=== PATIENT | female | born 1935 | race Caucasian/White ===

== ENCOUNTER 2019-03-01 16:09 | Inpatient (IN) | payer OTHER, MEDICAID ==
[~2019-03-01] VITALS: Ht 162.6 cm; Wt 62.6 kg
--- NOTE | 2019-03-01 16:09 | NUR ---
Patient KIA STUART from [facility], transferred to bed 3. RN evaluating patient at bedside.
[2019-03-01 16:15] VITALS: BP 148/95
--- NOTE | 2019-03-01 16:35 | NUR ---
KIA FROM [facility] FOR FALL TODAY. PT REPORTS FALLING BACKWARDS AND HITTING BACK OF HEAD AND TAILBONE. NO OBVIOUS TRAUMA/DEFORMITY NOTED, NO REDNESS/SWELLING. BASELINE AAOX2, AWARE OF NAME AND PLACE. PT IS SPEAKING IN FULL, CLEAR SENTENCES, AND ANSWERING QUESTIONS APPROPRIATELY. PT PLACED ON FEED WEIGHER. ADVISED PT TO CALL FOR HELP GETTING UP IF NEEDED. BED IN LOW POSITION, SIDE RAIL UP X1.
[2019-03-01] MEDS ORDERED: [UNRECOGNIZED DRUG - CODE] PO (17:51)
[2019-03-01] MEDS ORDERED: METF500T PO (17:51)
[2019-03-01] MEDS ORDERED: DONE10TA37 PO (17:51)
[2019-03-01] MEDS ORDERED: METO50TE2 PO (17:51)
[2019-03-01] MEDS ORDERED: AMLO5TAB PO (17:51)
[2019-03-01] MEDS ORDERED: DABI150C PO (17:51)
[2019-03-01] MEDS ORDERED: FERR325E14 PO (17:51)
[2019-03-01] MEDS ORDERED: FAMO-90 PO (17:51)
[2019-03-01] MEDS ORDERED: SERT50TA PO (17:51)
[2019-03-01] MEDS ORDERED: LOSA25TA43 PO (17:51)
[2019-03-01 17:58] LABS: BASOPHILS # (AUTO) 0.1 K/uL (0.00-0.22); BASOPHILS % (AUTO) 0.7 % (0.0-2.0); EOSINOPHILS # (AUTO) 0.2 K/uL (0-0.4); EOSINOPHILS % (AUTO) 2.3 % (0.0-4.0); HEMATOCRIT 33.9 % (36-48); HEMOGLOBIN 10.9 g/dL (12.0-16.0); LYMPHOCYTES # (AUTO) 1.1 K/uL (2.5-16.5); LYMPHOCYTES % (AUTO) 12.8 % (20.5-51.1); MEAN CORPUSCULAR HEMOGLOBIN 25 pg (27-31); MEAN CORPUSCULAR HGB CONC 32 g/dL (33-37); MEAN CORPUSCULAR VOLUME 78.1 fL (80-94); MONOCYTES # (AUTO) 0.5 K/uL (0.8-1.0); MONOCYTES % (AUTO) 6.1 % (1.7-9.3); NEUTROPHILS # (AUTO) 6.9 K/uL (1.8-7.7); NEUTROPHILS % (AUTO) 78.1 % (42.2-75.2); PLATELET COUNT (AUTO) 321 K/uL (140-450); RED BLOOD CELL COUNT(AUTO) 4.34 MIL/uL (4.20-5.40); RED CELL DISTRIBUTION WIDTH 20.5 % (11.6-13.7); WHITE BLOOD COUNT (AUTO) 8.9 K/uL (4.8-10.8)
--- NOTE | 2019-03-01 18:00 | NUR ---
URINE COLLECTED AND SENT TO LAB
[2019-03-01 18:07] LABS: ANION GAP 7.8 (8-16); CARBON DIOXIDE 32.4 mmol/L (21-32); CHLORIDE 98 mmol/L (98-107); CREATININE 0.8 mg/dL (0.6-1.3); GLUCOSE 134 mg/dL (74-106); POTASSIUM 3.2 mmol/L (3.5-5.1); SODIUM SERUM 135 mmol/L (136-145); UREA NITROGEN, BLOOD 16 mg/dL (7-18)
[2019-03-01 18:13] LABS: PROTHROMBIN TIME 10.5 secs (10.8-13.4)
[2019-03-01 18:14] LABS: ALBUMIN 3.2 g/dL (3.4-5.0); ASPARTATE AMINOTRANSFERASE 16 U/L (15-37); TOTAL BILIRUBIN 0.4 mg/dL (0.0-1.0)
[2019-03-01 18:33] LABS: APPEARANCE,URINE SL CLOUDY (CLEAR); BILIRUBIN,URINE NEGATIVE (NEGATIVE); BLOOD, URINE TRACE-I (NEGATIVE); COLOR,URINE YELLOW (YELLOW); LEUKOCYTE ESTERASE ,URINE 3+ (NEGATIVE); NITRITE, URINE NEGATIVE (NEGATIVE); UGLUCOSE NEGATIVE (NEGATIVE)
[2019-03-01 18:34] LABS: RBC,URINE 0-5 /HPF (0-5); WBC,URINE 60-80 /HPF (0-5)
[2019-03-01] MEDS ORDERED: ONDANSETRON 4 MG/2 ML VIAL IM/IVP PRN (18:45)
[2019-03-01] MEDS ORDERED: DOCUSATE SODIUM 100 MG GELCAP PO PRN (18:45)
[2019-03-01] MEDS ORDERED: POTASSIUM CHLORIDE 40 MEQ, LIDOCAINE MPF 1% - 5 mL VIAL 25 MG in NACL 0.9% 250 ML IV ONE (18:50)
[2019-03-01] MEDS ORDERED: MAG SULF 2000 MG/WATER PREMIX 50 ML IV ONE (18:50)
[2019-03-01] MEDS ORDERED: NACL 0.9% 1,000 ML IV ONE (18:55)
[2019-03-01] MEDS ORDERED: DEXTROSE 50% 50 ML SYR IVP PRN (19:00)
--- NOTE | 2019-03-01 19:24 | NUR ---
Patient will be admitted to care of dr. anna. Admited to telemetry. Will go to room 108A. Belongings list completed. Report to Kimberly MILLARD.
[2019-03-01 19:39] LABS: PHOSPHORUS 2.2 mg/dL (2.5-4.9); THYROID STIMULATING HORMONE 1.35 uIU/mL (0.34-3.74)
[2019-03-01 20:00] VITALS: BP 170/87
--- NOTE | 2019-03-01 20:00 | NUR ---
PT BROUGHT UP BY [facility] ESCORTED BY REAL MILLARD WHOM GAVE REPORT AT BEDSIDE. PT WAS TRANSFERRED TO ROOM 108 BED A. PT IS AOX1-2. PT KNOWS HER NAME AND THAT SHE IS IN A HOSPITAL BUT SHE HAS A HX OF DEMENTIA AND HAS PERIODS OF CONFUSION. PT HAS SKIN INTACT, LUNG SOUNDS CLEAR AND BOWEL SOUNDS PRESENT. V/S FOLLOWS T 97.7 P 86 R 18 B/P 170/87 WILL RETAKE B/P LATER. 02 99 ON ROOM AIR. ALL REQUESTED NEEDS ATTENDED BY STAFF.
--- NOTE | 2019-03-01 20:30 | NUR ---
ECHO AT BEDSIDE. Addendum: 03/02/19 at 0253 by Kimberly Valderrama RN PT GETTING ULTRA SOUND OF BILATERAL CAROTIDS NOT AN ECHOCARDIOGRAM AT BEDSIDE.
[2019-03-01] MEDS ORDERED: cefTRIAXone 1,000 MG VIAL ONE (20:52)
[2019-03-01] MEDS: DABIGATRAN ETEXILATE MESYLAT 75 MG CAP PO SCH (21:00)
--- NOTE | 2019-03-01 21:00 | NUR ---
PT FINGERSTICK IS 185. PT GIVEN CEFTRIAXONE IV ABT ORDERED. PT ALSO GIVEN DUE MEDS OF NUETRA-PHOS, PECID, AND ARICEPT. CALLED NEWS EDITOR DUE TO PRADAXA NOT IN [place].
[2019-03-01] MEDS: BLOOD GLUCOSE MONITORING 1 DEV DEV FS SCH (21:13)
[2019-03-01] MEDS: INSULIN LISPRO SLIDING SCALE 100 UNITS/ML VIAL SUBQ PRN (21:18)
[2019-03-01] MEDS ORDERED: SODIUM PHOS / POTASSIUM PHOS 1 PKT PDR PO SCH (21:30)
--- NOTE | 2019-03-01 21:30 | NUR ---
RESIDENTIAL ENERGY AUDITOR CALLED AND PRADAXA NOT AVAILABLE AT THIS TIME. ALSO SPOKE WITH RESIDENT CONCERNING K-RIDER, CHARGE NURSE SAID THAT PHARMACY N/A TO RECONSTITUTE K-RIDER WITH LIDOCAINE. RESIDENT DR. DYER D/CD ORDER AND REORDERED 60MEQ OF POTASSIUM INSTEAD.
[2019-03-01] MEDS: DONEPEZIL 10 MG TAB PO SCH (21:42)
[2019-03-01] MEDS: FAMOTIDINE 20 MG TAB PO SCH (21:43)
[2019-03-01] MEDS: ACETAMINOPHEN 325 MG TAB PO PRN (21:44)
[2019-03-01] MEDS ORDERED: POTASSIUM CHLORIDE 10 MEQ TABER PO SCH (22:00)
--- NOTE | 2019-03-01 22:00 | NUR ---
PT CHANGED AND REPOSITIONED. ALL FALLS PRECAUTIONS IN PLACE.
[2019-03-02] VITALS: BP 160/87
--- NOTE | 2019-03-02 00:45 | NUR ---
SPOKE WITH DR. NARVAEZ REGARDING PT ELEVATED B/P, SHE ORDERED A COZZAR AND BY REQUEST ADDED A PRN MORPHINE FOR MODERATE PAIN. PT IV WAS PULLED OUT WITH CANNULA INTACT. WILL REPLACE IV SITE. V/S FOLLOWS T 97.9 P 89 R 18 B/P 160/87 02 98% ON ROOM AIR.
[2019-03-02] MEDS ORDERED: MORPHINE SULFATE 2 MG/ML SYR IVP PRN (00:55)
--- NOTE | 2019-03-02 01:15 | NUR ---
PT GIVEN PO COZAAR AND NEW IV SITE PROVIDED ON LEFT WRIST 22GUAGE INTACT AND FLUSHED PATENT.
[2019-03-02] MEDS ORDERED: LOSARTAN 25 MG TAB PO SCH (01:30)
--- NOTE | 2019-03-02 03:08 | NUR ---
PT IN BED SLEEPING ALL FALLS PRECAUTIONS IN PLACE.NO S/S OF PAIN OR DISTRESS NOTED.
[2019-03-02 04:00] VITALS: BP 98/65
--- NOTE | 2019-03-02 04:00 | NUR ---
PT IN BED RESTING NO S/S OF PAIN OR DISTRESS NOTED. PT UNSURE OF WHERE SHE IS AND HOW SHE GOT HERE. PT RE-ORIENTED. PT PULLED OUT HER IV SITE. ANOTHER IV SITE ON R HAND 22G WAS PROVIDED X1 ATTEMPT. PT TOLERATED WELL.
--- NOTE | 2019-03-02 06:00 | NUR ---
FINGERSTICK IS 123, NO HUMALOG COVERAGE NEEDED.
[2019-03-02] MEDS: BLOOD GLUCOSE MONITORING 1 DEV DEV FS SCH ×4 (06:10→21:39)
[2019-03-02 07:18] LABS: BASOPHILS # (AUTO) 0.1 K/uL (0.00-0.22); BASOPHILS % (AUTO) 0.8 % (0.0-2.0); EOSINOPHILS # (AUTO) 0.2 K/uL (0-0.4); EOSINOPHILS % (AUTO) 3.3 % (0.0-4.0); HEMATOCRIT 33.4 % (36-48); HEMOGLOBIN 10.7 g/dL (12.0-16.0); LYMPHOCYTES # (AUTO) 1.4 K/uL (2.5-16.5); LYMPHOCYTES % (AUTO) 19.1 % (20.5-51.1); MEAN CORPUSCULAR HEMOGLOBIN 25 pg (27-31); MEAN CORPUSCULAR HGB CONC 32 g/dL (33-37); MEAN CORPUSCULAR VOLUME 78.4 fL (80-94); MONOCYTES # (AUTO) 0.4 K/uL (0.8-1.0); MONOCYTES % (AUTO) 5.8 % (1.7-9.3); PLATELET COUNT (AUTO) 324 K/uL (140-450); RED BLOOD CELL COUNT(AUTO) 4.26 MIL/uL (4.20-5.40); RED CELL DISTRIBUTION WIDTH 20.3 % (11.6-13.7); WHITE BLOOD COUNT (AUTO) 7.1 K/uL (4.8-10.8)
--- NOTE | 2019-03-02 07:22 | NUR ---
REPORT GIVEN TO DAYSHIFT NURSE AT BEDSIDE FOR CONTINUITY OF CARE, PT IN STABLE CONDITION.
--- NOTE | 2019-03-02 07:23 | NUR ---
RECEIVED REPORT FROM FLOOR INSTALLATION MECHANIC NURSE. PATIENT LYING DOWN IN BED SLEEPING, AROUSABLE BY VOICE. NO DISTRESS NOTED. DENIES ANY PAIN. AAOX1, CALM, COOPERATIVE, SKIN COLOR APPROPRIATE TO ETHNICITY, WARM TO TOUCH. SKIN INTACT. INTERMITTENT CONFUSION. IV SITE INTACT, PATENT, AND INFUSING IVF PER MD ORDERS. ABDOMEN SOFT, NON-DISTENDED. REVIEWED PLAN OF CARE WITH PATIENT. REINFORCEMENT NEEDED. SAFETY MEASURES IN PLACE, CALL LIGHT WITHIN REACH. WILL CONTINUE TO MONITOR.
[2019-03-02 07:30] LABS: ANION GAP 7.6 (8-16); CARBON DIOXIDE 33.2 mmol/L (21-32); CHLORIDE 101 mmol/L (98-107); CREATININE 0.8 mg/dL (0.6-1.3); GLUCOSE 125 mg/dL (74-106); POTASSIUM 3.8 mmol/L (3.5-5.1); SODIUM SERUM 138 mmol/L (136-145); UREA NITROGEN, BLOOD 14 mg/dL (7-18)
[2019-03-02 07:33] LABS: CHOL/HDL RATIO 5.9 (1-4.5)
[2019-03-02 08:00] VITALS: BP 172/86
[2019-03-02] MEDS ORDERED: LOSARTAN POTASSIUM 12.5 MG PO SCH (09:00)
[2019-03-02] MEDS ORDERED: SODIUM PHOSPHATE 15 MMOLE in NACL 0.9% 250 ML IV SCH (09:00)
[2019-03-02] MEDS: FERROUS SULFATE 325 MG TABEC PO SCH (09:45)
[2019-03-02] MEDS: metFORMIN 500 MG TAB PO SCH (09:46)
[2019-03-02] MEDS: LOSARTAN 25 MG TAB PO SCH (09:46)
[2019-03-02] MEDS: amLODIPine 5 MG TAB PO SCH (09:46)
[2019-03-02] MEDS: DABIGATRAN ETEXILATE MESYLAT 75 MG CAP PO SCH ×2 (09:48→20:49)
[2019-03-02] MEDS: SERTRALINE 50 MG TAB PO SCH (09:48)
[2019-03-02] MEDS: METOPROLOL SUCCINATE 50 MG TABER PO SCH (09:49)
--- NOTE | 2019-03-02 10:06 | NUR ---
PATIENT SITTING IN BED COMFORTABLY. NO DISTRESS NOTED. CONFUSED, FORGETFUL. SCHEDULED MEDICATIONS DUE GIVEN. WILL CONTINUE TO MONITOR.
[2019-03-02 12:00] VITALS: BP 131/85
--- NOTE | 2019-03-02 12:12 | NUR ---
PATIENT HAS BEEN SCREENED AND CATEGORIZED MODERATE NUTRITION RISK. PATIENT WILL BE SEEN WITHIN 3-5 DAYS OF ADMISSION. 03/04/19ROSS TEE MBA, RD
--- NOTE | 2019-03-02 13:29 | NUR ---
PT REFUSED ECHO. NOTIFIED VENICE LI AND DR. CHRISTENSEN
[2019-03-02 16:00] VITALS: BP 112/89
[2019-03-02] MEDS ORDERED: SODIUM FERRIC GLUCONATE 125 MG in NACL 0.9% 100 ML IV SCH (16:30)
--- NOTE | 2019-03-02 16:40 | NUR ---
ASSISTED FINANCIAL SERVICES AUDITOR IN CLEANING AND REPOSITIONING PATIENT. PATIENT TOLERATED WELL. CONTINUES TO BE CONFUSED. SCHEDULED MEDICATIONS DUE GIVEN. WILL CONTINUE TO MONITOR.
[2019-03-02] MEDS ORDERED: cefTRIAXone 1,000 MG VIAL ONE (18:51)
--- NOTE | 2019-03-02 19:25 | NUR ---
RECEIVED REPORT FORM JEN MILLARD DAYSHIFT NURSE AT BEDSIDE FOR CONTINUITY OF CARE, PT IN STABLE CONDITION.
--- NOTE | 2019-03-02 19:25 | NUR ---
GAVE REPORT TO FAC ENGINEER NURSE FOR CONTINUITY OF CARE. PATIENT IN STABLE CONDITION.
[2019-03-02 20:00] VITALS: BP 104/80
--- NOTE | 2019-03-02 20:00 | NUR ---
PT IN BED ALL FALLS PRECAUTIONS IN PLACE. PT IS AOX1 WITH PERIODS OF CONFUSION. PT STARTED TALKING ABOUT GOING TO HER BED ON THE FOURTH FLOOR, AND FINDING HER CAR SO SHE CAN GO HOME. PT ALSO C/O OF DISCOMFORT IN HER BACK AND SACRUM AREA. PT HAS IV SITE INTACT ON R HAND 22 GUAGE RUNNING N/S AT 60MLS /HR. V/S FOLLOWS T 99.3 P 100 R 18 B/P 02 104/80 02 97% ON ROOM AIR. PT TURNED AND REPOSITIONED.
[2019-03-02] MEDS: FAMOTIDINE 20 MG TAB PO SCH (20:47)
[2019-03-02] MEDS: DONEPEZIL 10 MG TAB PO SCH (20:47)
--- NOTE | 2019-03-02 21:00 | NUR ---
PT IN BED GIVEN ALL DUE MEDS AT THIS TIME OF ARICEPT, PEPCID, PRADAXA. PT FINGER STICK IS 206. PT GIVEN COVERAGE OF 4 UNITS OF HUMALOG.
--- NOTE | 2019-03-02 21:15 | NUR ---
PT C/O 04/15 PAIN IN SACRUM AND BACK, PT GIVEN IVP MORPHINE FOR SEVERE PAIN, WILL MONITOR FOR EFFECTIVENESS.
[2019-03-02] MEDS: INSULIN LISPRO SLIDING SCALE 100 UNITS/ML VIAL SUBQ PRN (21:43)
[2019-03-03] VITALS: BP 143/76
--- NOTE | 2019-03-03 | NUR ---
PT SITTING UP IN BED AGITATED OFF AND ON V/S FOLLOWS T 98.6 P 76 R 18 B/P 143/76 02 96% ON ROOM AIR.
--- NOTE | 2019-03-03 01:30 | NUR ---
PT IN BED WITH ALL FALLS PRECAUTIONS IN PLACE.PT AGITATED AND WANTING TO LEAVE. PT BELIEVES THAT THIS IS NOT A HOSPITAL AND THAT HER CAR IS PARKED OUTSIDE. PT IS WANTING TO GO HOME. MD DAI NOTIFIED AND PT WAS ORDERED AN ADDITION SEROQUEL. PT RE-ORIENTED BY DOCTOR AND AFTER SPEAKING WITH DOCTOR AND BECOMING MORE ORIENTATED, PT STAYED IN BED AND AGREED TO TAKE PRESCRIBED SEROQUEL. MD DAI ALSO ORDERED A PRN MELATONIN.
[2019-03-03] MEDS ORDERED: MELATONIN 3 MG TAB PO PRN (01:35)
[2019-03-03] MEDS ORDERED: QUEtiapine FUMARATE 25 MG TAB PO ONE (01:35)
--- NOTE | 2019-03-03 02:10 | NUR ---
TROPONIN LABS DRAWN AT BEDSIDE
[2019-03-03 04:00] VITALS: BP 159/76
--- NOTE | 2019-03-03 04:00 | NUR ---
PT IN BED ASLEEP NO S/S OF PAIN OR DISTRESS NOTED. ALL FALLS PRECAUTIONS IN PLACE AND V/S FOLLOWS T 97.5 P 73 R 18 B/P 159/76 02 97% ON ROOM AIR.
[2019-03-03] MEDS: BLOOD GLUCOSE MONITORING 1 DEV DEV FS SCH ×4 (05:46→21:25)
--- NOTE | 2019-03-03 06:00 | NUR ---
AM FINGERSTICK IDS 110 NO COVERAGE NEEDED. BED LOW AND ALL FALLS PRECAUTIONS OBSERVED.
[2019-03-03 07:06] LABS: BASOPHILS # (AUTO) 0.1 K/uL (0.00-0.22); BASOPHILS % (AUTO) 0.8 % (0.0-2.0); EOSINOPHILS # (AUTO) 0.3 K/uL (0-0.4); EOSINOPHILS % (AUTO) 3.9 % (0.0-4.0); HEMATOCRIT 32.1 % (36-48); HEMOGLOBIN 10.4 g/dL (12.0-16.0); LYMPHOCYTES # (AUTO) 1.2 K/uL (2.5-16.5); LYMPHOCYTES % (AUTO) 18.5 % (20.5-51.1); MEAN CORPUSCULAR HEMOGLOBIN 25 pg (27-31); MEAN CORPUSCULAR HGB CONC 32 g/dL (33-37); MEAN CORPUSCULAR VOLUME 77.9 fL (80-94); MONOCYTES # (AUTO) 0.4 K/uL (0.8-1.0); MONOCYTES % (AUTO) 6.6 % (1.7-9.3); NEUTROPHILS # (AUTO) 4.6 K/uL (1.8-7.7); NEUTROPHILS % (AUTO) 70.2 % (42.2-75.2); PLATELET COUNT (AUTO) 295 K/uL (140-450); RED BLOOD CELL COUNT(AUTO) 4.13 MIL/uL (4.20-5.40); RED CELL DISTRIBUTION WIDTH 19.9 % (11.6-13.7); WHITE BLOOD COUNT (AUTO) 6.6 K/uL (4.8-10.8)
--- NOTE | 2019-03-03 07:22 | NUR ---
REPORT GIVEN TO NAUN FOR CONTINUITY OF CARE, PT IN STABLE CONDITION.
--- NOTE | 2019-03-03 07:24 | NUR ---
RECEIVED BEDSIDE REPORT FROM TSA SCREENER VENICE SHIRLEY FOR CONTINUITY OF CARE. PATIENT AAOX1 TO NAME. PATIENT IS LAYING DOWN AND SLEEPING ON BED AT THIS TIME AND AROUSABLE BY VOICE AND EVEN CHEST RISE NOTED. SHE IS ON ROOM AIR. NO SIGNS OF DISTRESS DISTRESS NOTED. IV ON R HAND 22G, INFUSING NS AT 60 ML/HR, IV ASYMPTOMATIC PATENT AND INTACT. PATIENT IS BEDREST AND INCONTINENT. PATIENT ON TELE MONITOR ANDFALL RISK PROTOCOL IN PLACE. BED IN LOW POSITION, CALL LIGHT WITHIN REACH, SIDE RAILS X2 UP.
[2019-03-03 08:00] VITALS: BP 149/76
[2019-03-03 08:02] LABS: ANION GAP 10.1 (8-16); CARBON DIOXIDE 31.3 mmol/L (21-32); CHLORIDE 102 mmol/L (98-107); CREATININE 0.8 mg/dL (0.6-1.3); GLUCOSE 107 mg/dL (74-106); POTASSIUM 3.4 mmol/L (3.5-5.1); SODIUM SERUM 140 mmol/L (136-145); UREA NITROGEN, BLOOD 14 mg/dL (7-18)
[2019-03-03 08:20] LABS: PHOSPHORUS 3.5 mg/dL (2.5-4.9)
[2019-03-03] MEDS ORDERED: POTASSIUM CHLORIDE 10 MEQ TABER PO SCH ×2 (09:00→10:00)
[2019-03-03] MEDS: FERROUS SULFATE 325 MG TABEC PO SCH ×2 (09:58→10:04)
[2019-03-03] MEDS: LOSARTAN 25 MG TAB PO SCH (10:03)
[2019-03-03] MEDS: DABIGATRAN ETEXILATE MESYLAT 75 MG CAP PO SCH ×2 (10:03→21:01)
[2019-03-03] MEDS: SERTRALINE 50 MG TAB PO SCH (10:04)
[2019-03-03] MEDS: metFORMIN 500 MG TAB PO SCH (10:04)
--- NOTE | 2019-03-03 10:04 | NUR ---
ADMINISTERED MEDS PER MD ORDER, PATIENT TOLERATED WELL. PATIENT IS AWAKE AND SITTING UP ON BED. RESPIRATION EVEN AND UNLABORED. NO SIGNS OF DISTRESS NOTED. SAFETY MEASURES IN PLACE. TELE MONITOR ATTACHED.
[2019-03-03] MEDS: amLODIPine 5 MG TAB PO SCH (10:05)
[2019-03-03] MEDS: METOPROLOL SUCCINATE 50 MG TABER PO SCH (10:05)
--- NOTE | 2019-03-03 11:40 | NUR ---
PATIENT IS RESTING ON BED COMFORTABLY AT THIS TIME. DENIES PAIN AND SOB. NO SIGNS OF DISTRESS NOTED. SAFETY MEASURES IN PLACE. BED IN LOW POSITION AND CALL LIGHT WITHIN REACH. BED ALARM ACTIVATED.
--- NOTE | 2019-03-03 12:15 | NUR ---
DR CHRISTENSEN WAS AT BEDSIDE AND TALKING TO PATIENT. NO SIGNS OF DISTRESS NOTED. SAFETY MEASURES IN PLACE.
--- NOTE | 2019-03-03 13:45 | NUR ---
PATIENT IS RESTING ON BED AT THIS TIME. DENIES PAIN AND SOB. NO SIGNS OF DISTRESS NOTED. SAFETY MEASURES IN PLACE. BED IN LOW POSITION AND CALL LIGHT WITHIN REACH.
--- NOTE | 2019-03-03 15:37 | NUR ---
PATIENT IS AWAKE ON BED. DENIES PAIN AND SOB. NO SIGNS OF DISTRESS NOTED. SAFETY MEASURES IN PLACE. BED IN LOW POSITION AND CALL LIGHT WITHIN REACH.
[2019-03-03 16:00] VITALS: BP 127/76
--- NOTE | 2019-03-03 17:15 | NUR ---
PATIENT IS RESTING ON BED AT THIS TIME. CHEST RISES EVEN AND UNLABORED. NO SIGNS OF DISTRESS NOTED. SAFETY MEASURES IN PLACE. BED IN LOW POSITION AND CALL LIGHT WITHIN REACH.
--- NOTE | 2019-03-03 19:15 | NUR ---
ENDORSED PATIENT TO BUDGET ENGINEER NURSE FOR CONTINUITY OF CARE. PATIENT IS IN STABLE CONDITION. SAFETY MEASURES IN PLACE. BED IN LOW POSITION AND CALL LIGHT WITHIN REACH.
--- NOTE | 2019-03-03 19:16 | NUR ---
RECEIVED BEDSIDE REPORT FROM [facility] VENICE MAGALLON. A/O X1. CONFUSED. DROWSY. DISCUSSED PLAN OF CARE. VERBALIZED UNDERSTANDING. ABLE TO MAKE NEEDS KNOWN. DENIES PAIN. ROOM AIR. NO SIGNS OF RESP DISTRESS. EVEN CHEST RISE. R HAND 22G. PATENT AND INTACT. INFUSING NS @60. DRESSING CLEAN DRY AND INTACT. SKIN IS INTACT. PT IS INCONTINENT. NKA. FALL RISK PRECAUTIONS IN PLACE. YELLOW GOWN, YELLOW ARM BAND, YELLOW SOCKS, YELLOW FALL RISK SIGN AT DOOR. BED IN LOW POSITION. CALL LIGHT WITHIN REACH. WILL CONTINUE TO MONITOR.
[2019-03-03] MEDS: DONEPEZIL 10 MG TAB PO SCH (20:59)
[2019-03-03] MEDS: FAMOTIDINE 20 MG TAB PO SCH (20:59)
[2019-03-03] MEDS: INSULIN LISPRO SLIDING SCALE 100 UNITS/ML VIAL SUBQ PRN (21:27)
--- NOTE | 2019-03-03 21:31 | NUR ---
PT REPORTED MODERATE PAIN TO HER TAIL BONE. PT REQUESTED TYLENOL. WILL MEDICATE WITH TYLENOL PRN. WILL CONTINUE TO MONITOR.
[2019-03-03] MEDS: ACETAMINOPHEN 325 MG TAB PO PRN (21:38)
--- NOTE | 2019-03-03 22:38 | NUR ---
REASSESSED PAIN. PT IS SLEEPING AT THE MOMENT. EASILY AROUSABLE. NO SIGNS OF DISTRESS. WILL CONTINUE TO MONITOR.
--- NOTE | 2019-03-04 01:00 | NUR ---
PT SLEEPING IN BED EASILY AROUSABLE. EVEN CHEST RISE. NO SIGNS OF DISTRESS. ABLE TO MAKE NEEDS KNOWN. DENIES PAIN. WILL CONTINUE TO MONITOR.
--- NOTE | 2019-03-04 02:33 | NUR ---
PT REMAINS IN BED SLEEPING COMFORTABLY. EASILY AROUSABLE. REPOSITIONED IN BED. NO COMPLAINTS. DENIES PAIN. TOLERATED WELL. WILL CONTINUE TO MONITOR.
--- NOTE | 2019-03-04 03:45 | NUR ---
STOPPED NS THAT WAS INFUSING @60. ORDER WAS COMPLETE 03/02/19. ASSESSED PT. NOTHING ABNORMAL NOTED. WILL CONTINUE TO MONITOR.
[2019-03-04 04:00] VITALS: BP 138/67
--- NOTE | 2019-03-04 05:58 | NUR ---
PT SLEEPING COMFORTABLY NO SIGNS OF DISTRESS OR DISCOMFORT NOTED. EASILY AROUSABLE. FOLLOWS COMMANDS. ABLE TO MAKE NEEDS KNOWN. BED IN LOWEST POSITION. CALL LIGHT WITHIN REACH. WILL CONTINUE TO MONITOR.
[2019-03-04] MEDS: BLOOD GLUCOSE MONITORING 1 DEV DEV FS SCH ×3 (06:38→17:17)
[2019-03-04] MEDS: ACETAMINOPHEN 325 MG TAB PO PRN (06:39)
--- NOTE | 2019-03-04 06:47 | NUR ---
WILL ENDORSE PATIENT TO DAYSHIFT RN FOR CONTINUITY OF CARE. PATIENT IN STABLE CONDITION. BED IN LOW POSITION AND CALL LIGHT WITHIN REACH.
[2019-03-04 07:03] LABS: BASOPHILS # (AUTO) 0.1 K/uL (0.00-0.22); BASOPHILS % (AUTO) 0.8 % (0.0-2.0); EOSINOPHILS # (AUTO) 0.2 K/uL (0-0.4); EOSINOPHILS % (AUTO) 3.5 % (0.0-4.0); HEMATOCRIT 33.5 % (36-48); HEMOGLOBIN 10.6 g/dL (12.0-16.0); LYMPHOCYTES % (AUTO) 15.8 % (20.5-51.1); MEAN CORPUSCULAR HEMOGLOBIN 25 pg (27-31); MEAN CORPUSCULAR HGB CONC 32 g/dL (33-37); MEAN CORPUSCULAR VOLUME 78.8 fL (80-94); MONOCYTES # (AUTO) 0.5 K/uL (0.8-1.0); MONOCYTES % (AUTO) 7.5 % (1.7-9.3); NEUTROPHILS # (AUTO) 4.7 K/uL (1.8-7.7); NEUTROPHILS % (AUTO) 72.4 % (42.2-75.2); PLATELET COUNT (AUTO) 310 K/uL (140-450); RED BLOOD CELL COUNT(AUTO) 4.26 MIL/uL (4.20-5.40); RED CELL DISTRIBUTION WIDTH 20.1 % (11.6-13.7); WHITE BLOOD COUNT (AUTO) 6.5 K/uL (4.8-10.8)
[2019-03-04 07:26] LABS: ANION GAP 9.7 (8-16); CARBON DIOXIDE 30.6 mmol/L (21-32); CHLORIDE 104 mmol/L (98-107); CREATININE 0.7 mg/dL (0.6-1.3); GLUCOSE 94 mg/dL (74-106); POTASSIUM 3.3 mmol/L (3.5-5.1); SODIUM SERUM 141 mmol/L (136-145); UREA NITROGEN, BLOOD 16 mg/dL (7-18)
--- NOTE | 2019-03-04 07:30 | NUR ---
RECEIVED PT FROM HUMAN RESOURCES ADMIN NURSE FOR CONTINUITY OF CARE. PT AWAKE, ORIENTED X 1, CONVERSANT, FOLLOWS COMMAND, RECEIVED REPORT THAT PT JUST PULLED OUT HER IV.
--- NOTE | 2019-03-04 07:35 | NUR ---
PT IS AWAKE AND LYING ON THE BED, SIDE RAILS ARE UP AND CALL LIGHT WITHIN REACH, PT PULLED OUT HER IV LINE, ON FALL PRECAUTION, INITIATED PROTOCOL, AOX1, CONFUSED BUT RESPONDS APPROPRIATELY. DENIES PAIN AND NO SOB NOTED. WILL MONITOR PT.
[2019-03-04 07:44] LABS: MAGNESIUM 1.8 mg/dL (1.8-2.4); PHOSPHORUS 3.2 mg/dL (2.5-4.9)
[2019-03-04] MEDS ORDERED: NITROFURANTOIN 100 MG CAP PO SCH ×2 (08:44→17:00)
[2019-03-04] MEDS ORDERED: POTASSIUM CHLORIDE 10 MEQ TABER PO SCH (09:00)
[2019-03-04] MEDS: amLODIPine 5 MG TAB PO SCH (10:31)
[2019-03-04] MEDS: METOPROLOL SUCCINATE 50 MG TABER PO SCH (10:31)
[2019-03-04] MEDS: metFORMIN 500 MG TAB PO SCH (10:31)
[2019-03-04] MEDS: FERROUS SULFATE 325 MG TABEC PO SCH (10:32)
[2019-03-04] MEDS: LOSARTAN 25 MG TAB PO SCH (10:32)
[2019-03-04] MEDS: SERTRALINE 50 MG TAB PO SCH (10:33)
[2019-03-04] MEDS: DABIGATRAN ETEXILATE MESYLAT 75 MG CAP PO SCH (10:36)
--- NOTE | 2019-03-04 10:40 | NUR ---
PT IS AWAKE AND VITAL SIGNS CHECKED AND IS WITHIN NORMAL LIMIT, MEDICATIONS WERE GIVEN ORALLY AND PTY TOLERATED IT. NO SIGN OF DISTRESS NOTED. WILL MONITOR PT.
--- NOTE | 2019-03-04 10:45 | NUR ---
PT WAS REPOSITIONED AND ON THE RT LATERAL SIDE AND MADE COMFORTABLE. WILL MONITOR PT.
--- NOTE | 2019-03-04 11:34 | NUR ---
Business Reporter Note: I called and spoke with Clinical Resource Nurse Lizzie from [employer] , informed her of MD's request for snf placement for physical therapy. She requested I fax MD's snf order and physical therapy to her, fax number . I faxed information. She stated their physical therapy department will review physical therapy notes and determine if it is medically appropriate to refer patient to snf or if she can be referred to their outpatient physical therapy program. I explained to her I had faxed inquiry to [facility] (snf), Lizzie confirmed they have a contract with [facility].
[2019-03-04] MEDS: INSULIN LISPRO SLIDING SCALE 100 UNITS/ML VIAL SUBQ PRN (11:59)
[2019-03-04 12:00] VITALS: BP 119/74
--- NOTE | 2019-03-04 12:00 | NUR ---
PT IS AWAKE AND BLOOD GLUCOSE CHECK DONE AND RESULT IS 225, INSULIN 4 UNITS WAS GIVEN, SUBQ IN THE ABDOMEN, PT TOLERATED IT. WILL MONITOR PT.
[2019-03-04] MEDS ORDERED: NITR100C7 PO (12:24)
[2019-03-04] MEDS ORDERED: ACET-2619 PO (12:34)
[2019-03-04 13:13] LABS: ANION GAP 8.3 (8-16); CARBON DIOXIDE 30.9 mmol/L (21-32); CHLORIDE 99 mmol/L (98-107); CREATININE 0.8 mg/dL (0.6-1.3); GLUCOSE 173 mg/dL (74-106); POTASSIUM 4.2 mmol/L (3.5-5.1); SODIUM SERUM 134 mmol/L (136-145); UREA NITROGEN, BLOOD 20 mg/dL (7-18)
--- NOTE | 2019-03-04 15:08 | NUR ---
SPOKE WITH MOISÉS FROM [employer] AT [phone]. LEARNING OFFICER WILL BE AT 4PM. PRIMARY RN MADE AWARE.
--- NOTE | 2019-03-04 15:46 | NUR ---
Dowel Pin Man Note: Per Dog Track Kennel Manager Lizzie from [facility] , patient may go to [place] for physical therapy, she stated she will fax a hard copy of snf auth to [place]. She reported [employer] can be contacted, auth . Per Go from [place] patient can go to room 29A, accepting estefany Stanley.
[2019-03-04 16:30] VITALS: BP 132/73
--- NOTE | 2019-03-04 16:30 | NUR ---
DISCHARGED PT VIA WHEELCHAIR WITH [facility] PERSONNEL, REPORT GIVEN TO PERSONNEL. DISCHARGE TEACHINGS AND INSTRUCTIONS GIVEN TO PT AND VERBALIZED UNDERSTANDING. ARMBANDS REMOVED. VS FOLLOWS: T 98.4, P 85, BP 132/73, RR 18, O2 97%, SATURATING GOOD AT ROOM AIR. PT DENIES PAIN AND STABLE AT THIS TIME.
[2019-03-04 18:13] LABS: FOLIC ACID 9.9 ng/mL (>3.0)
== END 2019-03-04 16:30 | DRG 73 ==
LOC: MED 16:09 → MTU 18:43
PROVIDERS: ADMIT General Practice; ATTEND General Practice
DX: G90.8 Other disorders of autonomic nervous system (principal); G93.41 Metabolic encephalopathy; N39.0 Urinary tract infection, site not specified; E87.1 Hypo-osmolality and hyponatremia; E44.0 Moderate protein-calorie malnutrition; D68.59 Other primary thrombophilia; F03.90 Unspecified dementia, unspecified severity, without behavioral disturbance, psychotic disturbance, mood disturbance, and anxiety; E87.6 Hypokalemia; E83.42 Hypomagnesemia; I48.91 Unspecified atrial fibrillation; S09.90XA Unspecified injury of head, initial encounter; W18.39XA Other fall on same level, initial encounter; I10 Essential (primary) hypertension; F32.9 Major depressive disorder, single episode, unspecified; K21.9 Gastro-esophageal reflux disease without esophagitis; E11.69 Type 2 diabetes mellitus with other specified complication; D50.9 Iron deficiency anemia, unspecified; Z68.23 Body mass index [BMI] 23.0-23.9, adult; Z79.899 Other long term (current) drug therapy; Z79.84 Long term (current) use of oral hypoglycemic drugs; Z86.73 Personal history of transient ischemic attack (TIA), and cerebral infarction without residual deficits; Y93.89 Activity, other specified; Y92.89 Other specified places as the place of occurrence of the external cause; Y99.8 Other external cause status
CPT/HCPCS: 36415; 70450; 71045; 72080; 80048; 80053; 81001; 82272; 82550; 82607; 82728; 82746; 82948; 83036; 83540; 83690; 83735; 83880; 84100; 84134; 84443; 84484; 85025; 85045; 85610; 85730; 87081; 87086; 87186; 93005; 93880; 97110; 97116; 97530; 99285; C1758; J0696; J1815; J2001; J2270; J2916; J3475; J3480; J7030; J7060; Q0092

== ENCOUNTER 2019-04-01 16:33 | Emergency (ER) | payer OTHER, MEDICAID ==
[~2019-04-01] VITALS: Ht 167.6 cm; Wt 63.5 kg
[~2019-04-01 16:33] MED LIST: ACET-2619 PO; AMLO5TAB PO; DABI150C PO; DONE10TA37 PO; FAMO-90 PO; FERR325E14 PO; LOSA25TA43 PO; METF500T PO; METO50TE2 PO; NITR100C7 PO; SERT50TA PO; [UNRECOGNIZED DRUG - CODE] PO
[2019-04-01 16:40] VITALS: BP 122/86
--- NOTE | 2019-04-01 16:51 | NUR ---
KIA FROM [facility] FOR LEFT WRIST PAIN AND SWELLING NOTED SINCE THIS AM. PT DOES NOT RECALL FALLING OR ANY TRAUMA, PT HAS HX OF DEMENTIA. PER STAFF PT WAS NOT FOUND DOWN. WRIST IS RED AND SWOLLEN, NO OPEN SKIN. PT AWAKE AND ALERT PMH DEMENTIA, STROKE, HTN, AFIB.
--- NOTE | 2019-04-01 17:52 | NUR ---
Patient resting comfortably in bed. Vital Signs within normal limits. Respirations even and unlabored.
--- NOTE | 2019-04-01 18:20 | NUR ---
x ray at bedside.
--- NOTE | 2019-04-01 19:05 | NUR ---
REPORT RECIEVED FROM MELISSA MILLARD.
[2019-04-01 19:45] VITALS: BP 174/88
--- NOTE | 2019-04-01 20:08 | NUR ---
DISCHARGE PAPERS GIVEN TO [facility] TO RETURN TO FACILITY. CMS INTACT BILAT UPPER EXTREMITIES. WITH ALISSON WRAP IN PLACE, 0/10 PAIN. PT UNABLE TO AMBULATE. REPORTED BASELINE PHYSICAL RESTRICTION. VSS UPON RELEASE. RX OF NAPROSYN GIVEN. SIDE EFFECTS EXPLAINED. INSTRUCTED TO F/U WITH PCP AND WHEN TO RETURN TO ER. INSTRUCTIONS IN CLUDED IN DC PAPERWORK FOR FACILITY. ALL QUESTIONS ANSWERED.
== END 2019-04-01 19:45 ==
LOC: MED 16:33
DX: M19.032 Primary osteoarthritis, left wrist (principal); I48.91 Unspecified atrial fibrillation; E11.9 Type 2 diabetes mellitus without complications; F03.90 Unspecified dementia, unspecified severity, without behavioral disturbance, psychotic disturbance, mood disturbance, and anxiety; I10 Essential (primary) hypertension; Z86.73 Personal history of transient ischemic attack (TIA), and cerebral infarction without residual deficits; Z79.84 Long term (current) use of oral hypoglycemic drugs; Z79.1 Long term (current) use of non-steroidal anti-inflammatories (NSAID); Z79.2 Long term (current) use of antibiotics; Z79.899 Other long term (current) drug therapy
CPT/HCPCS: 73110; 99283; Q0092

== ENCOUNTER 2019-06-17 17:01 | Emergency (ER) | payer OTHER, MEDICAID ==
[~2019-06-17] VITALS: Ht 165.1 cm; Wt 62.6 kg
--- NOTE | 2019-06-17 17:01 | NUR ---
BIBA TO ER BED 7
[2019-06-17 17:09] VITALS: BP 149/87
--- NOTE | 2019-06-17 17:09 | NUR ---
BIB [facility] FROM [facility] W/ C/O FRONTAL HEAD BRUISE/HEMATOMA, AND NOSE BRIDGE AFTER FALLING FROM A CHAIR TO THE FLOOR. DENIES LOC HX; DM, HTN
[2019-06-17] MEDS ORDERED: ACETAMINOPHEN 325 MG TAB PO ONE (18:20)
[2019-06-17] MEDS ORDERED: BACITRACIN OINT 500 UNITS/GM PKT TP ONE (18:20)
[2019-06-17] MEDS ORDERED: NEOMYCIN/POLYMYXIN/BACITRACIN 0.9 GM/1 PKT TP ONE ×2 (18:46→19:10)
--- NOTE | 2019-06-17 19:13 | NUR ---
REPORT GIVEN VENICE MONTES
--- NOTE | 2019-06-17 21:50 | NUR ---
PT LYING IN BED, PT CONFUSED BUT IS ALERT. PENDING TRANSPORT BACK HOME. ETA IS 0100. ER MD MADE AWARE OF STATUS.
[2019-06-18 02:40] VITALS: BP 146/73
--- NOTE | 2019-06-18 02:40 | NUR ---
PT DISCHARGED WITH PAPERWORK. RX T3 FOR PAIN. EDUCATED PT REGARDING MEDICATION AND S/E. EDUCATED PT REGARDING D/C DIAGNOSIS AND INSTRUTIONS. PT VERBALIZED UNDERSTANDING OF TEACHING. TOLD PT TO FOLLOW UP WITH PCP AND WHEN TO RETURN TO ED. PT VSS. ALL QUESTIONS ANSWERED.
== END 2019-06-18 02:40 | disposition home or self-care (01) ==
LOC: MED 17:01
DX: S00.81XA Abrasion of other part of head, initial encounter (principal); E11.9 Type 2 diabetes mellitus without complications; F03.90 Unspecified dementia, unspecified severity, without behavioral disturbance, psychotic disturbance, mood disturbance, and anxiety; I10 Essential (primary) hypertension; Z86.73 Personal history of transient ischemic attack (TIA), and cerebral infarction without residual deficits; Z79.84 Long term (current) use of oral hypoglycemic drugs; Z79.899 Other long term (current) drug therapy; W19.XXXA Unspecified fall, initial encounter; Y93.89 Activity, other specified; Y92.89 Other specified places as the place of occurrence of the external cause; Y99.8 Other external cause status
CPT/HCPCS: 90471; 90715; 99283

== ENCOUNTER 2019-08-05 17:42 | Inpatient (IN) | payer OTHER, MEDICAID ==
[~2019-08-05] VITALS: Ht 165.1 cm; Wt 66.7 kg
[2019-08-05 17:45] VITALS: BP 155/71
--- NOTE | 2019-08-05 17:57 | NUR ---
83/F biba from [facility] for bilateral leg swelling x3 days; pt is a resident in the memory care unit. AOx2, at baseline, forgetful, hx dementia. Full clear speech. 2+ pitting edema BLE. Weak palpable pedal pulses. hx DM, HTN, dementia
--- NOTE | 2019-08-05 17:58 | NUR ---
HEART RHYTHM IRREGULAR UPON AUSCULATATION.
[2019-08-05] MEDS ORDERED: FUROSEMIDE 40 MG/4 ML VIAL IVP ONE (18:05)
[2019-08-05] MEDS ORDERED: POTA10TE30 PO (18:10)
[2019-08-05] MEDS ORDERED: KEP500 PO (18:10)
[2019-08-05] MEDS ORDERED: CARV3.12 PO (18:10)
[2019-08-05] MEDS ORDERED: MELA3TAB56 PO (18:10)
[2019-08-05] MEDS ORDERED: LIP80 PO (18:10)
--- NOTE | 2019-08-05 18:16 | NUR ---
NOTIFIED DR. HOFF PT AFIB ON MONITOR. RECEIVED ORDER FOR 12 LEAD EKG.
--- NOTE | 2019-08-05 18:19 | NUR ---
CXR AT BEDSIDE
--- NOTE | 2019-08-05 18:31 | NUR ---
HABILITATION TRAINING SPECIALIST AT BEDSIDE.
--- NOTE | 2019-08-05 18:53 | NUR ---
US TECH AT BEDSIDE.
[2019-08-05 18:54] LABS: BASOPHILS # (AUTO) 0.1 K/uL (0.00-0.22); EOSINOPHILS # (AUTO) 0.2 K/uL (0-0.4); EOSINOPHILS % (AUTO) 3.1 % (0.0-4.0); HEMATOCRIT 28.6 % (36-48); HEMOGLOBIN 8.9 g/dL (12.0-16.0); LYMPHOCYTES # (AUTO) 0.6 K/uL (2.5-16.5); LYMPHOCYTES % (AUTO) 9.4 % (20.5-51.1); MEAN CORPUSCULAR HEMOGLOBIN 28 pg (27-31); MEAN CORPUSCULAR HGB CONC 31 g/dL (33-37); MEAN CORPUSCULAR VOLUME 88.5 fL (80-94); MONOCYTES # (AUTO) 0.3 K/uL (0.8-1.0); MONOCYTES % (AUTO) 5.1 % (1.7-9.3); NEUTROPHILS # (AUTO) 5.2 K/uL (1.8-7.7); NEUTROPHILS % (AUTO) 81.4 % (42.2-75.2); PLATELET COUNT (AUTO) 204 K/uL (140-450); RED BLOOD CELL COUNT(AUTO) 3.23 MIL/uL (4.20-5.40); RED CELL DISTRIBUTION WIDTH 18.9 % (11.6-13.7); WHITE BLOOD COUNT (AUTO) 6.4 K/uL (4.8-10.8)
[2019-08-05 19:01] LABS: ANION GAP 10.6 (8-16); CARBON DIOXIDE 31.3 mmol/L (21-32); CHLORIDE 100 mmol/L (98-107); GLUCOSE 189 mg/dL (74-106); POTASSIUM 3.9 mmol/L (3.5-5.1); SODIUM SERUM 138 mmol/L (136-145); UREA NITROGEN, BLOOD 17 mg/dL (7-18)
--- NOTE | 2019-08-05 19:20 | NUR ---
REPORT TO VENICE HER. PT IN STABLE CONDITION. TX OF CARE AT THIS TIME.
--- NOTE | 2019-08-05 19:39 | NUR ---
PATIENT IS QUIETLY SITTING IN BED AND IN NO DISTRESS. WILL CONTINUE TO MONITOR.
--- NOTE | 2019-08-05 20:00 | NUR ---
PATIENT REMOVED IV ACCESS. PT. IS COOPERATIVE; VSS. WILL CONTINUE TO MONITOR.
--- NOTE | 2019-08-05 21:06 | NUR ---
MD AT BEDSIDE EVALUATING PATIENT.
[2019-08-05] MEDS ORDERED: NACL 0.9% 1,000 ML IV SCH (21:13)
[2019-08-05] MEDS ORDERED: ONDANSETRON 4 MG/2 ML VIAL IM/IVP PRN (21:15)
[2019-08-05] MEDS ORDERED: MORPHINE SULFATE 2 MG/ML SYR IVP PRN (21:15)
[2019-08-05] MEDS ORDERED: HYDROcodone/APAP 7.5/325 MG 1 TAB PO PRN (21:15)
[2019-08-05] MEDS ORDERED: ACETAMINOPHEN 325 MG TAB PO PRN (21:15)
--- NOTE | 2019-08-05 21:25 | NUR ---
PATIENT IS CALM AND COOPERATIVE. WILL CONTINUE TO MONITOR.
--- NOTE | 2019-08-05 21:50 | NUR ---
Patient will be admitted Admited to TELE. Will go to room 107 . Belongings list completed. Report to VENICE SHIRLEY .
[2019-08-05] MEDS ORDERED: MELATONIN 3 MG TAB PO PRN (21:55)
[2019-08-05 22:00] VITALS: BP 111/75
[2019-08-05] MEDS ORDERED: ALBUTEROL SULFATE/IPRATROPIU 3 ML SOL IH PRN (22:00)
[2019-08-05] MEDS ORDERED: DEXTROSE 50% 50 ML SYR IVP PRN (22:00)
--- NOTE | 2019-08-05 22:00 | NUR ---
PT TRANSPORTED HERE BY [facility] TO 107 BED A. PT IS AOX1 , WITH SKIN INTACT AND IV SITE IS 22G ON RIGHT AC. PT V/S FOLLOWS T 97.5 P 100 R 18 B/P 111/75 02 92% ON ROOM AIR. PT DENIES PAIN AT THIS TIME. PT ORIENTED TO PLACE, ROOM , AND BED CONTROLS. ALL FALLS PRECAUTIONS IN PLACE.
[2019-08-05] MEDS ORDERED: CARVEDILOL 6.25 MG TAB PO SCH (22:05)
[2019-08-05 22:12] LABS: PROTHROMBIN TIME 16.9 secs (10.8-13.4)
--- NOTE | 2019-08-05 22:15 | NUR ---
DR. NAVARRO AT BEDSIDE EXAMINING PT. PT AOX1, NO S/S OF SOB. PT BREATHING EASY. SHE DOES HAVE BILATERAL LEG SWELLING WITH PITTING EDEMA X1. LUNG SOUNDS CLEAR. PT HAS NO C/O VOICED AT THIS TIME. ALL FALLS PRECAUTIONS IN PLACE.
--- NOTE | 2019-08-05 22:30 | NUR ---
PT WAS TURNED, CHANGED AND REPOSITIONED IN BED. ALL FALLS PROTOCOLS IN PLACE.
[2019-08-05 22:41] LABS: MAGNESIUM 1.7 mg/dL (1.8-2.4); PHOSPHORUS 3.2 mg/dL (2.5-4.9)
[2019-08-05 22:42] LABS: CHOL/HDL RATIO 2.9 (1-4.5); LDL (CALC) 34.8 mg/dL (60-100)
[2019-08-05 22:43] LABS: FREE T4 (FREE THYROXINE) 1.24 ng/dL (0.76-1.46); THYROID STIMULATING HORMONE 1.7 uIU/mL (0.34-3.74)
[2019-08-06] VITALS (7 sets, daily range): BP systolic 122–136; BP diastolic 65–91
--- NOTE | 2019-08-06 | NUR ---
PT IN BED , SHE WAS TURNED, CHANGED AND REPOSITIONED IN BED ALL FALLS PRECAUTIONS IN PLACE, PT DENIES PAIN, NO S/S OF PAIN OR DISTRESS NOTED. IV SITE INTACT AND RUNNING 10MLS/HR TO KVO.
--- NOTE | 2019-08-06 04:00 | NUR ---
PT MOVED TO ROOM 122A. PT IN BED NO S/S OF PAIN OR DISTRESS NOTED. V/S FOLLOWS : T 97.5 P 94 R 18 B/P 136/91 02 91% ON ROOM AIR. ALL FALL PRECAUTIONS IN PLACE AND CALL WEBER IN REACH.
[2019-08-06] MEDS: INSULIN LISPRO SLIDING SCALE 100 UNITS/ML VIAL SUBQ PRN ×2 (05:58→12:02)
--- NOTE | 2019-08-06 06:00 | NUR ---
PT IN BED FINGERSTICK IS 176, GIVEN 2 UNITS HUMALOG COVERAGE.
[2019-08-06] MEDS: BLOOD GLUCOSE MONITORING 1 DEV DEV FS SCH ×4 (06:01→20:23)
[2019-08-06] MEDS ORDERED: PIPERACILLIN/TAZOBACTAM 3.375 GM in DEXTROSE 5% 50 ML IV SCH (07:00)
--- NOTE | 2019-08-06 07:25 | NUR ---
REPORT RECEIVED FROM ELECTROCHEMIST NURSE, PT SLEEPING QUIETLY IN NO ACUTE DISTRESS, AROUSABLE, POC REVIEWED, NO IMMEDIATE NEEDS AT THIS TIME, ALL SAFETY MEASURES IN PLACE, WILL CONTINUE TO MONITOR
[2019-08-06 07:47] LABS: BASOPHILS # (AUTO) 0.1 K/uL (0.00-0.22); BASOPHILS % (AUTO) 0.6 % (0.0-2.0); EOSINOPHILS # (AUTO) 0.1 K/uL (0-0.4); EOSINOPHILS % (AUTO) 1.2 % (0.0-4.0); HEMATOCRIT 36.6 % (36-48); HEMOGLOBIN 11.9 g/dL (12.0-16.0); LYMPHOCYTES % (AUTO) 11.6 % (20.5-51.1); MEAN CORPUSCULAR HEMOGLOBIN 30 pg (27-31); MEAN CORPUSCULAR HGB CONC 33 g/dL (33-37); MEAN CORPUSCULAR VOLUME 91.9 fL (80-94); MONOCYTES # (AUTO) 0.9 K/uL (0.8-1.0); MONOCYTES % (AUTO) 10.7 % (1.7-9.3); NEUTROPHILS # (AUTO) 6.7 K/uL (1.8-7.7); NEUTROPHILS % (AUTO) 75.9 % (42.2-75.2); PLATELET COUNT (AUTO) 179 K/uL (140-450); RED BLOOD CELL COUNT(AUTO) 3.98 MIL/uL (4.20-5.40); RED CELL DISTRIBUTION WIDTH 15.4 % (11.6-13.7); WHITE BLOOD COUNT (AUTO) 8.8 K/uL (4.8-10.8)
[2019-08-06 08:16] LABS: ANION GAP 10.8 (8-16); CARBON DIOXIDE 29.7 mmol/L (21-32); CHLORIDE 103 mmol/L (98-107); CREATININE 0.4 mg/dL (0.6-1.3); GLUCOSE 95 mg/dL (74-106); POTASSIUM 4.5 mmol/L (3.5-5.1); SODIUM SERUM 139 mmol/L (136-145); UREA NITROGEN, BLOOD 14 mg/dL (7-18)
[2019-08-06] MEDS: levETIRAcetam 500 MG TAB PO SCH ×2 (08:16→20:38)
[2019-08-06] MEDS: CARVEDILOL 3.125 MG TAB PO SCH ×2 (08:17→17:15)
[2019-08-06] MEDS: DABIGATRAN ETEXILATE MESYLAT 75 MG CAP PO SCH ×2 (08:18→20:43)
[2019-08-06] MEDS ORDERED: ALBUTEROL SULFATE/IPRATROPIU 3 ML SOL IH PRN (08:20)
[2019-08-06] MEDS ORDERED: SERTRALINE 50 MG TAB PO SCH (09:00)
[2019-08-06] MEDS ORDERED: POTASSIUM CHLORIDE 8 MEQ TABER PO SCH (09:00)
[2019-08-06] MEDS: FUROSEMIDE 40 MG/4 ML VIAL IVP SCH ×2 (09:00→17:16)
[2019-08-06] MEDS ORDERED: metFORMIN 500 MG TAB PO SCH (09:00)
[2019-08-06] MEDS ORDERED: LOSARTAN 25 MG TAB PO SCH (09:00)
--- NOTE | 2019-08-06 10:57 | NUR ---
POST [facility] THERAPY EDUCATION PROVIDED TO PATIENT WITH ACKNOWLEDGEMENT ON SPUTUM SAMPLE COLLECTION SPECIMEN CUP PLACED ON TABLE WITHIN REACH
--- NOTE | 2019-08-06 11:13 | NUR ---
PATIENT HAS BEEN SCREENED AND CATEGORIZED MODERATE NUTRITION RISK. PATIENT WILL BE SEEN WITHIN 3-5 DAYS OF ADMISSION. 08/09/19 08/11/[address]
--- NOTE | 2019-08-06 12:17 | NUR ---
2 UNITS INSULIN GIVEN FOR BS 190, PT SITTING UP TALKING WITHOUT PROBLEM, SPEAKS CLEARLY, CONFUSED, IV SITE WNL, PT DENIES SOB OR PAIN, ALL SAFETY MEASURES IN PLACE, WILL CONTINUE TO MONITOR
--- NOTE | 2019-08-06 13:55 | NUR ---
LARGE BM, DIAPER CHANGED, PERICARE DONE, PT ROGER WELL, PT KEEP PULLING ON HER IV LINE AND EKG LEADS, EKG LEADS REPLACED, IV INFILTRATED, REMOVED AT THIS TIME, CATH TIP INTACT, BLEEDING CONTROLLED, PT ROEGR, WELL
--- NOTE | 2019-08-06 14:22 | NUR ---
CARDIAC ECHO AT BEDSIDE
--- NOTE | 2019-08-06 14:51 | NUR ---
22G IV STARTED TO RIGHT UPPER ARM, FLUSHES WELL, SITE WNL, PT ROGER WELL.
[2019-08-06] MEDS: PIPERACILLIN/TAZOBACTAM 3.375 GM in DEXTROSE 5% 50 ML IV SCH ×2 (14:55→20:35)
[2019-08-06] MEDS: ALBUTEROL SULFATE/IPRATROPIU 3 ML SOL IH SCH ×2 (14:58→20:04)
[2019-08-06] MEDS ORDERED: INUL1CTB PO (16:09)
[2019-08-06] MEDS ORDERED: FURO-570 PO (16:09)
[2019-08-06] MEDS ORDERED: ZOS3.375I IV (16:09)
[2019-08-06] MEDS ORDERED: LAS20I IV (16:16)
--- NOTE | 2019-08-06 16:25 | NUR ---
CALLED [facility] [phone] SPOKE WITH SEGUN WALTER, NOTIFIED THAT PATIENT IS STABLE TO BE TRANSFERRED FAXED [facility] IN PT HOSPITAL STAY NOTICE REGARDING POST STABILIZATION CARE FORM ,DC SUMMARY AND ORDER TO [phone], SEGUN REQUESTED DR BENOIT'S # AND THE FLOOR NUMBER PROVIDED THE NUMBERS AND NOTIFIED RAMIRO CHARGE NURSE.
--- NOTE | 2019-08-06 17:55 | NUR ---
PT COUGHING, STATES, SHE CHOCKED ON DINNER, PT SPEAKING CLEARLY, BREATH SOUNDS CLEAR, PT REPOSITIONED, SITTING UP HIGHER NOW, STATES SHE FEELS BETTER, WILL CONTINUE TO MONITOR. WILL NOTIFY .
--- NOTE | 2019-08-06 19:26 | NUR ---
REPORT GIVEN TO STORAGE BATTERY TESTER NURSE, PT IN STABLE CONDITION.
--- NOTE | 2019-08-06 19:27 | NUR ---
RECEIVED REPORT FORM LUCILA RN DAYSHIFT NURSE AT BEDSIDE FOR CONTINUITY OF CARE, PT IN STABLE CONDITION.
--- NOTE | 2019-08-06 20:04 | NUR ---
RECEIVED PT ON RA, SP02 93%. HOB>30. NO RESPIRATORY DISTRESS NOTED AT THIS TIME. TX GIVEN ORDERED. NO ADVERSE REACTION. WILL CONTINUE TO MONITOR PT
--- NOTE | 2019-08-06 20:35 | NUR ---
AT 2014 EMELINA FROM [facility] CALLED AND SAID PT CAN GO TO ROOM 313 IN [facility] .TRANSPORT WILL BE HERE AT 7811.#TO CALL REPORT IS [phone] AND NAME OF NURSE TO GIVE REPORT IS FARHAT.HE ASKED OF RECENT VS I GAVE IT TO HIM T=98.3,P=112,RESP=18,O2 SAT=94% IN RA AND KO=626/69.INFORMATION GAVE TO CASPER MILLARD, PT'S NURSE.
--- NOTE | 2019-08-06 20:45 | NUR ---
PT IN BED AL FALLS PRECAUTIONS IN PLACE, V/S FOLLOWS T 98.3 P 112 R 18 B/P 129/69 02 94% ON ROOM AIR. PT GIVEN ALL SCHEDULED MEDS DUE AT THIS TIME . PT ALSO RECEIVED SCHEDULED ZOSYN IV ABT. IV SITE ON RIGHT UPPER ARM INTACT AND ASYMPTOMATIC RUNNING N/S AT 10 TO KVO. FINGERSTICK IS 115 NO HUMALOG COVERAGE NEEDED.
[2019-08-06] MEDS ORDERED: DONEPEZIL 10 MG TAB PO SCH (21:00)
[2019-08-06] MEDS ORDERED: ATORVASTATIN 80 MG TAB PO SCH (21:00)
--- NOTE | 2019-08-06 21:15 | NUR ---
PT WAS TURNED, CHANGED AND REPOSITIONED IN BED AND MADE READY FOR TRANSFER.
--- NOTE | 2019-08-06 22:05 | NUR ---
RECEIVED CALL FROM [place] TO CALL [phone] AND GIVE REPORT TO KAILA .GAVE NEW INFORMATION TO CASPER QUINN
--- NOTE | 2019-08-06 22:10 | NUR ---
DISCHARGE INSTRUCTIONS REVIEWED WITH PT AND SHE SIGNED DISCHARGE PAPERS. [facility] EMT'S ARRIVED, SHORT REPORT GIVEN TO EMT'S WELL DISCHARGE PAPERWORK. PT IN STABLE CONDITION. CHRISSY CALLED AND REPORT GIVEN OVER THE PHONE TO KAILA MILLARD . PT TELE BOX REMOVED AND IV SALINE LOCKED. PT TRANSFERRED BY THE EMT'S TO [facility].
--- NOTE | 2019-08-06 22:30 | NUR ---
PT LEFT WITH [facility] VIA GURNEY ESCORTED BY 2 EMT'S. TRIED TO CALL SON BRAEDEN HINOJOSA( [phone]) NAME ON ANSWERING MACHINE DIDN'T MATCH, NO MESSAGE LEFT. INSTEAD CALLED NEXT OF KIN , BROTHER OSMANI OSPINA, ([phone]) MESSAGE LEFT TO CALL BACK REGARDING PT GODOY. PT LEFT WITH EMT'S IN STABLE CONDITION. PT GOING TO [place] [address] [id number] [place].
--- NOTE | 2019-08-06 22:35 | NUR ---
PT LEFT WITH BELONGINGS IN HAND.
== END 2019-08-06 22:30 | disposition short-term general hospital (02) | DRG 177 ==
LOC: MED 17:42 → MTU 21:13
PROVIDERS: ADMIT General Practice; ATTEND General Practice
DX: J69.0 Pneumonitis due to inhalation of food and vomit (principal); I50.43 Acute on chronic combined systolic (congestive) and diastolic (congestive) heart failure; I11.0 Hypertensive heart disease with heart failure; E11.65 Type 2 diabetes mellitus with hyperglycemia; I48.91 Unspecified atrial fibrillation; F32.9 Major depressive disorder, single episode, unspecified; K21.9 Gastro-esophageal reflux disease without esophagitis; D64.9 Anemia, unspecified; G40.909 Epilepsy, unspecified, not intractable, without status epilepticus; G30.9 Alzheimer's disease, unspecified; F02.80 Dementia in other diseases classified elsewhere, unspecified severity, without behavioral disturbance, psychotic disturbance, mood disturbance, and anxiety; Z74.01 Bed confinement status
CPT/HCPCS: 36415; 71045; 80048; 82948; 83036; 83605; 83690; 83735; 83880; 84100; 84439; 84443; 84484; 85025; 85610; 85730; 87081; 93005; 93970; 94640; 97530; 99285; J1815; J1940; J2543; J7030; J7060; J7620; Q0092

== ENCOUNTER 2019-08-20 16:18 | Inpatient (IN) | payer OTHER, MEDICAID ==
[~2019-08-20] VITALS: Ht 165.1 cm; Wt 58.5 kg
[~2019-08-20 16:18] MED LIST changes: -ACET-2619 PO; -AMLO5TAB PO; +CARV3.12 PO; +INUL1CTB PO; +KEP500 PO; +LAS20I IV; +LIP80 PO; +MELA3TAB56 PO; -METO50TE2 PO; -NITR100C7 PO; +POTA10TE30 PO; +ZOS3.375I IV; -[UNRECOGNIZED DRUG - CODE] PO
--- NOTE | 2019-08-20 16:18 | NUR ---
Patient BIBA BLS, transferred to bed 9. RN evaluating patient at bedside.
--- NOTE | 2019-08-20 16:23 | NUR ---
Dr. Ray is evaluating the patient at bedside.
[2019-08-20 16:28] VITALS: BP 137/85
--- NOTE | 2019-08-20 16:55 | NUR ---
Assumed patient care, nursing assessment completed. BIBA for evaluation of BLE edema, patient coming from [facility]. Patient seen and evaluated by OMAR JASSO completed.
[2019-08-20 17:08] LABS: BASOPHILS # (AUTO) 0.1 K/uL (0.00-0.22); BASOPHILS % (AUTO) 0.9 % (0.0-2.0); EOSINOPHILS # (AUTO) 0.3 K/uL (0-0.4); EOSINOPHILS % (AUTO) 4.9 % (0.0-4.0); HEMATOCRIT 29.3 % (36-48); LYMPHOCYTES # (AUTO) 0.7 K/uL (2.5-16.5); MEAN CORPUSCULAR HEMOGLOBIN 26 pg (27-31); MEAN CORPUSCULAR HGB CONC 31 g/dL (33-37); MEAN CORPUSCULAR VOLUME 85.3 fL (80-94); MONOCYTES # (AUTO) 0.5 K/uL (0.8-1.0); MONOCYTES % (AUTO) 6.7 % (1.7-9.3); NEUTROPHILS # (AUTO) 5.4 K/uL (1.8-7.7); NEUTROPHILS % (AUTO) 77.5 % (42.2-75.2); PLATELET COUNT (AUTO) 226 K/uL (140-450); RED BLOOD CELL COUNT(AUTO) 3.43 MIL/uL (4.20-5.40); RED CELL DISTRIBUTION WIDTH 18.3 % (11.6-13.7)
[2019-08-20] MEDS ORDERED: DABI150C PO (17:09)
[2019-08-20 17:25] LABS: CARBON DIOXIDE 30.3 mmol/L (21-32); CHLORIDE 100 mmol/L (98-107); CREATININE 0.9 mg/dL (0.6-1.3); GLUCOSE 169 mg/dL (74-106); POTASSIUM 3.3 mmol/L (3.5-5.1); SODIUM SERUM 138 mmol/L (136-145); UREA NITROGEN, BLOOD 12 mg/dL (7-18)
[2019-08-20 17:31] LABS: ALBUMIN 2.9 g/dL (3.4-5.0); ASPARTATE AMINOTRANSFERASE 31 U/L (15-37); TOTAL BILIRUBIN 0.6 mg/dL (0.0-1.0)
[2019-08-20] MEDS ORDERED: FUROSEMIDE 40 MG/4 ML VIAL IVP ONE (17:35)
[2019-08-20] MEDS ORDERED: DEXTROSE 50% 50 ML SYR IVP PRN ×2 (17:50→19:55)
[2019-08-20] MEDS ORDERED: DOCUSATE SODIUM 100 MG GELCAP PO PRN (17:50)
[2019-08-20] MEDS ORDERED: ACETAMINOPHEN 325 MG TAB PO PRN (17:50)
[2019-08-20] MEDS ORDERED: ALBUTEROL SULFATE/IPRATROPIU 3 ML SOL IH PRN (17:50)
[2019-08-20] MEDS ORDERED: ONDANSETRON 4 MG/2 ML VIAL IM/IVP PRN (17:50)
[2019-08-20] MEDS ORDERED: MORPHINE SULFATE 2 MG/ML SYR IVP PRN (17:50)
[2019-08-20] MEDS ORDERED: HYDROcodone/APAP 5/325 MG 1 TAB TAB PO PRN (17:50)
[2019-08-20] MEDS ORDERED: INSULIN LISPRO SLIDING SCALE 100 UNITS/ML VIAL SUBQ PRN (17:50)
[2019-08-20 18:31] LABS: APPEARANCE,URINE HAZY (CLEAR); BILIRUBIN,URINE NEGATIVE (NEGATIVE); BLOOD, URINE NEGATIVE (NEGATIVE); COLOR,URINE YELLOW (YELLOW); LEUKOCYTE ESTERASE ,URINE TRACE (NEGATIVE); NITRITE, URINE NEGATIVE (NEGATIVE); UGLUCOSE NEGATIVE (NEGATIVE)
[2019-08-20 18:54] LABS: RBC,URINE 0-5 /HPF (0-5); WBC,URINE NONE SEEN /HPF (0-5)
[2019-08-20 18:55] LABS: CALCIUM OXALATE CRYSTALS,UR 0-10 /HPF (None Seen); HYALINE CASTS, URINE 0-10 /LPF (None Seen)
--- NOTE | 2019-08-20 18:56 | NUR ---
Dispo and medical decision making, inpatient admission for further management. Patient transferred to floor via ACLS protocol, patient care report to Adalberto, continuity of care endorsed.
[2019-08-20 19:11] LABS: MAGNESIUM 1.6 mg/dL (1.8-2.4); PHOSPHORUS 2.9 mg/dL (2.5-4.9)
[2019-08-20 19:14] VITALS: BP 109/40
--- NOTE | 2019-08-20 19:30 | NUR ---
RECEIVED PATIENT REPORT AT BEDSIDE. PATIENT IS AWAKE AND ALERT BUT DISORIENTED TO TIME, PLACE AND SITUATION. PT ON ROOM AIR. NO SOB OR S/S OF DISTRESS NOTED. NO C/O PAIN AT THIS TIME. SCABS/ EXCORIATION NOTED TO UPPER EXTREMITIES AND CHEST. PITTING EDEMA NOTED TO BLE. PATIENT PLACED ON TELE MONITORING. BED LOWERED WITH CALL LIGHT WITHIN REACH. WILL CONTINUE TO MONITOR
[2019-08-20] MEDS: ALBUTEROL SULFATE/IPRATROPIU 3 ML SOL IH SCH (19:38)
[2019-08-20 20:00] VITALS: BP 135/69
[2019-08-20] MEDS: FERROUS SULFATE 325 MG TABEC PO SCH (20:56)
--- NOTE | 2019-08-20 20:56 | NUR ---
ADMINISTERED SCHEDULED MEDICATIONS. PT TOLERATED WELL
[2019-08-20] MEDS: levETIRAcetam 500 MG TAB PO SCH (20:57)
[2019-08-20] MEDS ORDERED: BLOOD GLUCOSE MONITORING 1 DEV DEV FS SCH (21:00)
[2019-08-20] MEDS ORDERED: FAMOTIDINE 20 MG TAB PO SCH (21:00)
[2019-08-20] MEDS ORDERED: MAGNESIUM OXIDE 400 MG TAB PO SCH (21:00)
[2019-08-20] MEDS ORDERED: POTASSIUM CHLORIDE 10 MEQ TABER PO SCH (21:00)
[2019-08-20] MEDS ORDERED: MELATONIN 3 MG TAB PO SCH (21:00)
[2019-08-20] MEDS ORDERED: DABIGATRAN ETEXILATE MESYLAT 75 MG CAP PO SCH (21:00)
[2019-08-20] MEDS: BLOOD GLUCOSE MONITORING 1 DEV DEV FS SCH (21:06)
[2019-08-20] MEDS: NACL 0.9% 1,000 ML IV SCH (21:31)
[2019-08-20] MEDS: INSULIN LISPRO SLIDING SCALE 100 UNITS/ML VIAL SUBQ PRN (21:37)
[2019-08-21] VITALS: BP 110/65
--- NOTE | 2019-08-21 01:30 | NUR ---
PT HAD BM. STOOL SOFT, BROWN AND MODERATE IN AMOUNT. PT CLEANED AND REPOSITIONED FOR COMFORT
[2019-08-21 04:36] VITALS: BP 128/78
--- NOTE | 2019-08-21 05:46 | NUR ---
PT ASLEEP IN BED AT THIS TIME. NO S/S OF DISTRESS NOTED
[2019-08-21] MEDS: BLOOD GLUCOSE MONITORING 1 DEV DEV FS SCH ×3 (06:49→16:30)
[2019-08-21] MEDS: ALBUTEROL SULFATE/IPRATROPIU 3 ML SOL IH SCH ×3 (07:17→19:12)
--- NOTE | 2019-08-21 07:22 | NUR ---
RECEIVED HAND OFF REPORT FROM PM RN PT ASLEEP IN BED NOTABLE CHEST RISE AND FALL ALL SAFETY MEASURES ARE IN PLACE WILL CONTINUE TO MONITOR.
[2019-08-21 08:00] VITALS: BP 132/80
--- NOTE | 2019-08-21 08:19 | NUR ---
PATIENT HAS BEEN SCREENED AND CATEGORIZED MODERATE NUTRITION RISK. PATIENT WILL BE SEEN WITHIN 3-5 DAYS OF ADMISSION. 08/23/19 08/25/[address]
[2019-08-21] MEDS ORDERED: metFORMIN 500 MG TAB PO SCH (09:00)
[2019-08-21] MEDS ORDERED: SERTRALINE 50 MG TAB PO SCH (09:00)
[2019-08-21] MEDS ORDERED: LOSARTAN 25 MG TAB PO SCH (09:00)
[2019-08-21] MEDS ORDERED: POTASSIUM CHLORIDE 10 MEQ TABER PO SCH (09:00)
[2019-08-21] MEDS: FUROSEMIDE 40 MG/4 ML VIAL IVP SCH ×2 (09:10→18:16)
[2019-08-21] MEDS: FERROUS SULFATE 325 MG TABEC PO SCH (09:11)
[2019-08-21] MEDS: CARVEDILOL 3.125 MG TAB PO SCH ×2 (09:11→18:15)
[2019-08-21] MEDS: levETIRAcetam 500 MG TAB PO SCH (09:11)
--- NOTE | 2019-08-21 09:15 | NUR ---
FREQUENT ROUNDING ON PT PT APPEARS STABLE AND IN NO APPARENT DISTRESS. ALL SAFETY MEASURES ARE IN PLACE WILL CONTINUE TO MONITOR.
--- NOTE | 2019-08-21 11:31 | NUR ---
FREQUENT ROUNDING ON PT PT APPEARS STABLE AND IN NO APPARENT DISTRESS. ALL SAFETY MEASURES ARE IN PLACE WILL CONTINUE
--- NOTE | 2019-08-21 12:16 | NUR ---
DC PLANNING 83 YRS OLD FEMALE ADMITTED FROM [facility], WITH A DX OF ACSDHF. PT A/OX 2 WHEELCHAIR BOUND AT BASE LINE. PT HAS A HX OF DM, HTN,CHF , STROKE, A-FIB AND DEMENTIA. CXRAY DONE ADMINISTER LASIX 40 MG IVP . PATIENT'S INSURANCE IS [employer] AND PLAN TO TRANSFER TO CONTRACTED FACILITY. CALLED [facility] SPOKE WITH JAQUELINE NOTIFIED PT'S ADMISSION AND SHE IS STABLE TO BE TRANSFERRED TO [facility]. FAXED ALL THE PAPER WORK TO [phone] AND PER JAQUELINE SHE WILL WORK ON IT. CM TO FOLLOW
[2019-08-21] MEDS: INSULIN LISPRO SLIDING SCALE 100 UNITS/ML VIAL SUBQ PRN (12:24)
[2019-08-21 12:54] VITALS: BP 91/61
--- NOTE | 2019-08-21 13:06 | NUR ---
FREQUENT ROUNDING ON PT PT APPEARS STABLE AND IN NO APPARENT DISTRESS. ALL SAFETY MEASURES ARE IN PLACE WILL CONTINUE TO MONITOR.
--- NOTE | 2019-08-21 14:35 | NUR ---
SPOKE WITH JAQUELINE CORLEY FROM [facility] AND GAVE HER INFORMATION FOR TRANSFER SHE STATED SHE IS GOING TO WORK ON SETTING UP TRANSPORTATION
--- NOTE | 2019-08-21 15:05 | NUR ---
NOTIFIED GURJIT FROM ADMITTING ABOUT PATIENT NOT BEING ABLE TO SIGN ADMISSION FORMS PT HAS SEVERE DEMENTIA. PT FAMILY IS ALL OUT OF STATE
--- NOTE | 2019-08-21 16:11 | NUR ---
LEFT VOICEMAIL ON PT FAMILY PERSON TO NOTIFY [phone]
[2019-08-21 16:15] VITALS: BP 98/64
--- NOTE | 2019-08-21 17:35 | NUR ---
RECEIVED PHONE CALL FROM [facility] SET UP OPERATOR PT WILL BE GOING TO [facility] ROOM 317 CALL NUMBER [phone]
[2019-08-21] MEDS: NACL 0.9% 1,000 ML IV SCH (17:49)
[2019-08-21 18:25] VITALS: BP 136/58
--- NOTE | 2019-08-21 19:15 | NUR ---
ENDORSED PT TO PM RN PT AWAKE IN BED PT APPEARS STABLE AND IN NO APPARENT DISTRESS. ALL SAFETY MEASURES ARE IN PLACE. DISCHARGE PAPERWORK FILLED OUT ENDORSED UPDATING THE LATEST VITALS AND WHEN REPORT IS GIVEN. [facility] CALLED AND STATED THEY WOULD CALL ME AT [phone] NEVER CALLED. ENDORSED TO PM RN
--- NOTE | 2019-08-21 19:16 | NUR ---
RECEIVED PT FROM DAY SHIFT NURSE. PT IS WAITING FOR TRANSFER TO [facility] RM 317. PT IN STABLE CONDITION.
--- NOTE | 2019-08-21 19:30 | NUR ---
CALLED [facility] AND PROVIDED REPORT TO RNJEANINE.
--- NOTE | 2019-08-21 20:30 | NUR ---
ENDORSED PT TO AMBULANCE TRANSPORTATION TEAM. PT IN STABLE CONDITION. PT LEFT HOSPITAL.
[2019-08-21] MEDS ORDERED: AMIODARONE 200 MG TAB PO SCH (21:00)
[2019-08-22 07:07] LABS: FOLIC ACID 7.1 ng/mL (>3.0)
[2019-08-29] MEDS ORDERED: AMIODARONE 200 MG TAB PO SCH (09:00)
== END 2019-08-21 20:40 | disposition short-term general hospital (02) | DRG 291 ==
LOC: MED 16:18 → MTU 18:00
PROVIDERS: ADMIT General Practice; ATTEND General Practice
DX: I11.0 Hypertensive heart disease with heart failure (principal); E43 Unspecified severe protein-calorie malnutrition; I50.43 Acute on chronic combined systolic (congestive) and diastolic (congestive) heart failure; K21.9 Gastro-esophageal reflux disease without esophagitis; F32.9 Major depressive disorder, single episode, unspecified; F03.90 Unspecified dementia, unspecified severity, without behavioral disturbance, psychotic disturbance, mood disturbance, and anxiety; E87.6 Hypokalemia; E11.65 Type 2 diabetes mellitus with hyperglycemia; Z66 Do not resuscitate; D50.9 Iron deficiency anemia, unspecified; E83.42 Hypomagnesemia; I48.0 Paroxysmal atrial fibrillation; I35.0 Nonrheumatic aortic (valve) stenosis; Z86.73 Personal history of transient ischemic attack (TIA), and cerebral infarction without residual deficits; Z88.8 Allergy status to other drugs, medicaments and biological substances; Z79.899 Other long term (current) drug therapy; Z79.84 Long term (current) use of oral hypoglycemic drugs; Z68.21 Body mass index [BMI] 21.0-21.9, adult
CPT/HCPCS: 36415; 71045; 80053; 81001; 82607; 82746; 82948; 83540; 83605; 83735; 83880; 84100; 84484; 85025; 85045; 85610; 85730; 87040; 87081; 87086; 93005; 93970; 94640; 96374; 99285; C1758; J1815; J1940; J7030; J7620; Q0092

== ENCOUNTER 2019-12-10 17:31 | Emergency (ER) | payer OTHER, MEDICAID ==
[~2019-12-10] VITALS: Ht 157.5 cm; Wt 54.4 kg
[2019-12-10 17:31] VITALS: BP 140/73
[~2019-12-10 17:31] MED LIST changes: -DONE10TA37 PO; -INUL1CTB PO; -LAS20I IV; -ZOS3.375I IV
--- NOTE | 2019-12-10 17:31 | NUR ---
[facility] RN evaluating patient at bedside.
--- NOTE | 2019-12-10 18:10 | NUR ---
KIA from [facility] for worsening BLE edema. Denies SOB. Hx HTN, DM, CHF, Dementia. Pt awake , alert x2 .afibrile ,able to stand with assistance,sce ,cbs,plus 3 pitting edema LE.with some abrasion on left leg. Pt is DNR
[2019-12-10 18:17] LABS: BASOPHILS # (AUTO) 0.1 K/uL (0.00-0.22); BASOPHILS % (AUTO) 1.2 % (0.0-2.0); EOSINOPHILS # (AUTO) 0.1 K/uL (0-0.4); EOSINOPHILS % (AUTO) 2.6 % (0.0-4.0); HEMATOCRIT 29.3 % (36-48); HEMOGLOBIN 9.5 g/dL (12.0-16.0); LYMPHOCYTES # (AUTO) 0.4 K/uL (2.5-16.5); LYMPHOCYTES % (AUTO) 8.9 % (20.5-51.1); MEAN CORPUSCULAR HEMOGLOBIN 27 pg (27-31); MEAN CORPUSCULAR HGB CONC 33 g/dL (33-37); MEAN CORPUSCULAR VOLUME 84.2 fL (80-94); MONOCYTES # (AUTO) 0.3 K/uL (0.8-1.0); MONOCYTES % (AUTO) 5.6 % (1.7-9.3); NEUTROPHILS # (AUTO) 3.9 K/uL (1.8-7.7); NEUTROPHILS % (AUTO) 81.7 % (42.2-75.2); PLATELET COUNT (AUTO) 135 K/uL (140-450); RED BLOOD CELL COUNT(AUTO) 3.47 MIL/uL (4.20-5.40); WHITE BLOOD COUNT (AUTO) 4.8 K/uL (4.8-10.8)
--- NOTE | 2019-12-10 18:22 | NUR ---
emt at bedside doin ekg.
[2019-12-10 18:30] LABS: ALBUMIN 2.8 g/dL (3.4-5.0); ANION GAP 9.4 (8-16); ASPARTATE AMINOTRANSFERASE 33 U/L (15-37); CARBON DIOXIDE 33.9 mmol/L (21-32); CHLORIDE 97 mmol/L (98-107); CREATININE 0.9 mg/dL (0.6-1.3); GLUCOSE 156 mg/dL (74-106); POTASSIUM 3.3 mmol/L (3.5-5.1); SODIUM SERUM 137 mmol/L (136-145); TOTAL BILIRUBIN 0.7 mg/dL (0.0-1.0); UREA NITROGEN, BLOOD 14 mg/dL (7-18)
--- NOTE | 2019-12-10 19:05 | NUR ---
Dr. Barber is evaluating the patient at bedside.
--- NOTE | 2019-12-10 19:09 | NUR ---
RECEIVED REPORT FROM VENICE GALLEGO.
--- NOTE | 2019-12-10 19:10 | NUR ---
DR THOMAS ASSESSING PT IN ROOM.
[2019-12-10] MEDS ORDERED: POTASSIUM CHLORIDE 10 MEQ TABER PO ONE (19:40)
[2019-12-10] MEDS ORDERED: FUROSEMIDE 20 MG/2 ML VIAL IVP ONE (19:40)
--- NOTE | 2019-12-10 20:30 | NUR ---
IV ESTABLISHED, LASIX AND KDUR GIVEN. STRAIGHT CATHED. URINE SENT TO LAB
[2019-12-10 21:34] LABS: APPEARANCE,URINE SL CLOUDY (CLEAR); BILIRUBIN,URINE NEGATIVE (NEGATIVE); BLOOD, URINE NEGATIVE (NEGATIVE); COLOR,URINE YELLOW (YELLOW); LEUKOCYTE ESTERASE ,URINE TRACE (NEGATIVE); NITRITE, URINE NEGATIVE (NEGATIVE); UGLUCOSE NEGATIVE (NEGATIVE)
[2019-12-10 22:00] LABS: RBC,URINE NONE SEEN /HPF (0-5)
--- NOTE | 2019-12-10 23:15 | NUR ---
PT LAYING AWAKE IN BED. O2 SAT AT 100% RA. BEDRAIL X2 UP. WILL CONTINUE TO MONITOR.
[2019-12-11] MEDS ORDERED: cefTRIAXone 1,000 MG VIAL ONE (00:50)
--- NOTE | 2019-12-11 01:30 | NUR ---
PT SEEN WITH EYES CLOSED. VISIBLE CHEST RISE AND FALL NOTED. BEDRAIL X2 UP. WILL CONTINUE TO MONITOR.
--- NOTE | 2019-12-11 02:55 | NUR ---
SPOKE TO TRANSFER CENTER. PT ACCEPTED TO [facility]. ER TO ER TRANSFER. ACCEPTING, DR ZALDIVAR. .
[2019-12-11] MEDS ORDERED: ATOR20TA PO (03:41)
[2019-12-11] MEDS ORDERED: KEN.1C TP (03:41)
--- NOTE | 2019-12-11 04:15 | NUR ---
REPORT GIVEN TO ADIN MILLARD AT ER AT [facility].
--- NOTE | 2019-12-11 04:23 | NUR ---
Patient to be transferred to [facility]. Is being transferred due to INSURANCE. Receiving facility has accepting physician and available space. ER physician has signed transfer form. Patient or responsible libertarian has agreed to transfer and signed form. Patient belongings inventoried and will be sent with patient. Copy of nursing notes, lab reports, EKG, Physicians Orders and X-rays to be sent with patient. Report called to ADIN MILLARD at receiving facility. [facility] ambulance service has been called for transfer.
[2019-12-11 04:24] VITALS: BP 118/77
== END 2019-12-11 04:17 | disposition short-term general hospital (02) ==
LOC: MED 17:31
DX: I50.9 Heart failure, unspecified (principal); N39.0 Urinary tract infection, site not specified; E11.9 Type 2 diabetes mellitus without complications; F03.90 Unspecified dementia, unspecified severity, without behavioral disturbance, psychotic disturbance, mood disturbance, and anxiety; K21.9 Gastro-esophageal reflux disease without esophagitis; I10 Essential (primary) hypertension; Z79.899 Other long term (current) drug therapy; Z79.84 Long term (current) use of oral hypoglycemic drugs; Z88.8 Allergy status to other drugs, medicaments and biological substances
CPT/HCPCS: 36415; 71045; 80053; 81001; 83880; 84484; 85025; 87040; 87086; 93005; 96365; 96375; 99285; C1758; J0696; J1940; Q0092

== ENCOUNTER 2020-02-03 10:40 | Inpatient (IN) | payer OTHER, MEDICAID, SELFPAY ==
[~2020-02-03] VITALS: Ht 160 cm; Wt 44.0 kg
[2020-02-03 10:40] VITALS: BP 128/87
[~2020-02-03 10:40] MED LIST changes: +ATOR20TA PO; -FAMO-90 PO; +KEN.1C TP; -LIP80 PO
[2020-02-03] MEDS ORDERED: NACL 0.9% 1,000 ML IV SCH ×2 (10:42→14:00)
[2020-02-03] MEDS ORDERED: cefTRIAXone 1,000 MG in DEXT 5% MINI-BAG PLUS 50 ML IV ONE (10:45)
[2020-02-03] MEDS ORDERED: cefTRIAXone 1,000 MG VIAL ONE (10:58)
[2020-02-03 11:01] LABS: BASOPHILS # (AUTO) 0.1 K/uL (0.00-0.22); BASOPHILS % (AUTO) 1.6 % (0.0-2.0); EOSINOPHILS # (AUTO) 0.1 K/uL (0-0.4); EOSINOPHILS % (AUTO) 0.8 % (0.0-4.0); HEMATOCRIT 40.8 % (36-48); HEMOGLOBIN 12.6 g/dL (12.0-16.0); LYMPHOCYTES # (AUTO) 1.3 K/uL (2.5-16.5); LYMPHOCYTES % (AUTO) 14.7 % (20.5-51.1); MEAN CORPUSCULAR HEMOGLOBIN 28 pg (27-31); MEAN CORPUSCULAR HGB CONC 31 g/dL (33-37); MEAN CORPUSCULAR VOLUME 91.1 fL (80-94); MONOCYTES # (AUTO) 0.4 K/uL (0.8-1.0); MONOCYTES % (AUTO) 4.3 % (1.7-9.3); NEUTROPHILS # (AUTO) 6.8 K/uL (1.8-7.7); NEUTROPHILS % (AUTO) 78.6 % (42.2-75.2); PLATELET COUNT (AUTO) 332 K/uL (140-450); RED BLOOD CELL COUNT(AUTO) 4.48 MIL/uL (4.20-5.40); WHITE BLOOD COUNT (AUTO) 8.7 K/uL (4.8-10.8)
[2020-02-03 11:17] LABS: ANION GAP 12.7 (8-16); ASPARTATE AMINOTRANSFERASE 42 U/L (15-37); CARBON DIOXIDE 32.1 mmol/L (21-32); CHLORIDE 113 mmol/L (98-107); CREATININE 1.8 mg/dL (0.6-1.3); GLUCOSE 288 mg/dL (74-106); POTASSIUM 3.8 mmol/L (3.5-5.1); SODIUM SERUM 154 mmol/L (136-145); TOTAL BILIRUBIN 0.5 mg/dL (0.0-1.0); UREA NITROGEN, BLOOD 55 mg/dL (7-18)
[2020-02-03 11:37] LABS: APPEARANCE,URINE HAZY (CLEAR); BILIRUBIN,URINE NEGATIVE (NEGATIVE); BLOOD, URINE 1+ (NEGATIVE); COLOR,URINE RED (YELLOW); LEUKOCYTE ESTERASE ,URINE 3+ (NEGATIVE); NITRITE, URINE NEGATIVE (NEGATIVE); UGLUCOSE NEGATIVE (NEGATIVE)
[2020-02-03 11:45] LABS: WBC,URINE 16-25 (MOD) /HPF (0-5)
[2020-02-03] MEDS ORDERED: FURO-570 PO (11:59)
[2020-02-03] MEDS ORDERED: LORA10TA19 PO (11:59)
[2020-02-03] MEDS ORDERED: DONE10TA10 PO (11:59)
[2020-02-03] MEDS ORDERED: FURO-572 PO (11:59)
[2020-02-03] MEDS ORDERED: ACET-2619 PO (12:00)
[2020-02-03] MEDS: DILTIAZEM 25 MG/5 ML VIAL IVP ONE ×2 (12:50→12:59)
[2020-02-03] MEDS ORDERED: DOCUSATE SODIUM 100 MG GELCAP PO PRN (14:00)
[2020-02-03] MEDS ORDERED: ONDANSETRON 4 MG/2 ML VIAL IM/IVP PRN (14:00)
[2020-02-03] MEDS ORDERED: ACETAMINOPHEN 325 MG TAB PO PRN (14:00)
[2020-02-03 14:21] LABS: MAGNESIUM 2.3 mg/dL (1.8-2.4); PHOSPHORUS 3.1 mg/dL (2.5-4.9)
[2020-02-03] MEDS ORDERED: HYDRAGUARD CREAM TP PRN (14:25)
[2020-02-03] MEDS ORDERED: FOAM DRESSING TP PRN (14:25)
[2020-02-03] MEDS ORDERED: MEDICATION REC. PHARMACY CONS. 1 EA MISC MC PRN (14:35)
[2020-02-03 14:37] LABS: PROTHROMBIN TIME 18.1 secs (10.8-13.4)
[2020-02-03 14:39] LABS: FREE T4 (FREE THYROXINE) 0.86 ng/dL (0.76-1.46); THYROID STIMULATING HORMONE 3.21 uIU/mL (0.34-3.74)
[2020-02-03] MEDS: DEXT 5% / NACL 0.45% 1,000 ML IV SCH (14:40)
[2020-02-03] MEDS ORDERED: LORATADINE 10 MG TAB PO PRN (14:50)
[2020-02-03] MEDS ORDERED: GLUCAGON 1 MG VIAL IVP PRN (14:50)
[2020-02-03] MEDS ORDERED: DEXTROSE 50% 50 ML SYR IVP PRN (14:50)
[2020-02-03] MEDS ORDERED: CARVEDILOL 3.125 MG TAB PO SCH (15:00)
[2020-02-03] MEDS ORDERED: FUROSEMIDE 20 MG/2 ML VIAL IVP SCH (15:05)
[2020-02-03 16:00] VITALS: BP 99/62
[2020-02-03] MEDS: BLOOD GLUCOSE MONITORING 1 DEV DEV FS SCH ×2 (17:01→21:00)
[2020-02-03 20:00] VITALS: BP 103/55
[2020-02-03] MEDS ORDERED: CRUSHER, PILL MC ONE (20:54)
[2020-02-03] MEDS: FUROSEMIDE 20 MG/2 ML VIAL IVP SCH (21:00)
[2020-02-03] MEDS ORDERED: DABIGATRAN ETEXILATE MESYLAT 75 MG CAP PO SCH (21:00)
[2020-02-03] MEDS: PIPERACILLIN/TAZOBACTAM 3.375 GM in DEXTROSE 5% 50 ML IV SCH (22:41)
[2020-02-03] MEDS: FERROUS SULFATE 325 MG TABEC PO SCH (22:43)
[2020-02-03] MEDS: levETIRAcetam 500 MG TAB PO SCH (22:44)
[2020-02-03] MEDS: MELATONIN 3 MG TAB PO SCH (22:45)
[2020-02-03] MEDS: ATORVASTATIN 20 MG TAB PO SCH (22:45)
[2020-02-03] MEDS: DABIGATRAN ETEXILATE MESYLAT 75 MG CAP PO SCH (22:51)
[2020-02-03] MEDS ORDERED: CARVEDILOL 3.125 MG TAB PO ONE (23:45)
[2020-02-04] VITALS: BP 96/64
[2020-02-04 04:00] VITALS: BP 94/50
[2020-02-04] MEDS: INSULIN LISPRO SLIDING SCALE 100 UNITS/ML VIAL SUBQ PRN ×3 (06:29→19:23)
[2020-02-04] MEDS: BLOOD GLUCOSE MONITORING 1 DEV DEV FS SCH ×4 (06:35→21:17)
[2020-02-04] MEDS: PIPERACILLIN/TAZOBACTAM 3.375 GM in DEXTROSE 5% 50 ML IV SCH ×3 (06:35→20:23)
[2020-02-04 07:36] LABS: BASOPHILS # (AUTO) 0.1 K/uL (0.00-0.22); BASOPHILS % (AUTO) 0.8 % (0.0-2.0); EOSINOPHILS # (AUTO) 0.1 K/uL (0-0.4); EOSINOPHILS % (AUTO) 1.2 % (0.0-4.0); HEMOGLOBIN 10.7 g/dL (12.0-16.0); LYMPHOCYTES % (AUTO) 9.5 % (20.5-51.1); MEAN CORPUSCULAR HEMOGLOBIN 29 pg (27-31); MEAN CORPUSCULAR HGB CONC 32 g/dL (33-37); MEAN CORPUSCULAR VOLUME 90.7 fL (80-94); MONOCYTES # (AUTO) 0.4 K/uL (0.8-1.0); NEUTROPHILS # (AUTO) 8.7 K/uL (1.8-7.7); NEUTROPHILS % (AUTO) 84.5 % (42.2-75.2); PLATELET COUNT (AUTO) 234 K/uL (140-450); RED BLOOD CELL COUNT(AUTO) 3.75 MIL/uL (4.20-5.40); RED CELL DISTRIBUTION WIDTH 19.5 % (11.6-13.7); WHITE BLOOD COUNT (AUTO) 10.3 K/uL (4.8-10.8)
[2020-02-04 08:00] VITALS: BP 102/60
[2020-02-04 08:28] LABS: ALBUMIN 2.5 g/dL (3.4-5.0); ANION GAP 15.2 (8-16); ASPARTATE AMINOTRANSFERASE 26 U/L (15-37); CARBON DIOXIDE 27.9 mmol/L (21-32); CHLORIDE 116 mmol/L (98-107); CREATININE 1.6 mg/dL (0.6-1.3); GLUCOSE 232 mg/dL (74-106); LACTATE DEHYDROGENASE 150 U/L (81-234); PHOSPHORUS 3.2 mg/dL (2.5-4.9); POTASSIUM 3.1 mmol/L (3.5-5.1); TOTAL BILIRUBIN 0.5 mg/dL (0.0-1.0); UREA NITROGEN, BLOOD 53 mg/dL (7-18)
[2020-02-04] MEDS: LOSARTAN 25 MG TAB PO SCH (09:00)
[2020-02-04] MEDS: CARVEDILOL 3.125 MG TAB PO SCH ×2 (09:20→18:58)
[2020-02-04] MEDS: DONEPEZIL 10 MG TAB PO SCH (09:21)
[2020-02-04] MEDS: POTASSIUM CHLORIDE 10 MEQ TABER PO SCH (09:22)
[2020-02-04] MEDS: levETIRAcetam 500 MG TAB PO SCH ×2 (09:22→20:24)
[2020-02-04] MEDS: LACTOBACILLUS RHAMNOSUS GG 1 EACH CAP PO SCH (09:22)
[2020-02-04] MEDS: SERTRALINE 50 MG TAB PO SCH (09:23)
[2020-02-04] MEDS: FERROUS SULFATE 325 MG TABEC PO SCH ×2 (09:23→20:23)
[2020-02-04] MEDS: DABIGATRAN ETEXILATE MESYLAT 75 MG CAP PO SCH ×2 (09:32→20:27)
[2020-02-04] MEDS: FUROSEMIDE 20 MG/2 ML VIAL IVP SCH ×3 (09:33→21:00)
[2020-02-04 10:39] LABS: SODIUM SERUM 156 mmol/L (136-145)
[2020-02-04] MEDS ORDERED: LACTULOSE 20 GM/30 ML UDC PO SCH (11:00)
[2020-02-04 12:00] VITALS: BP 104/77
[2020-02-04 16:00] VITALS: BP 108/75
[2020-02-04 20:00] VITALS: BP 89/64
[2020-02-04] MEDS: ATORVASTATIN 20 MG TAB PO SCH (20:24)
[2020-02-04] MEDS: MELATONIN 3 MG TAB PO SCH (20:24)
[2020-02-04] MEDS: DEXT 5% / NACL 0.45% 1,000 ML IV SCH (21:18)
[2020-02-05] VITALS: BP 87/55
[2020-02-05 04:00] VITALS: BP 97/67
[2020-02-05] MEDS: PIPERACILLIN/TAZOBACTAM 3.375 GM in DEXTROSE 5% 50 ML IV SCH ×3 (04:08→20:10)
[2020-02-05] MEDS: BLOOD GLUCOSE MONITORING 1 DEV DEV FS SCH ×4 (06:46→20:45)
[2020-02-05 07:51] LABS: BASOPHILS # (AUTO) 0.1 K/uL (0.00-0.22); BASOPHILS % (AUTO) 0.6 % (0.0-2.0); EOSINOPHILS # (AUTO) 0.4 K/uL (0-0.4); EOSINOPHILS % (AUTO) 5.1 % (0.0-4.0); HEMATOCRIT 31.6 % (36-48); LYMPHOCYTES # (AUTO) 0.9 K/uL (2.5-16.5); LYMPHOCYTES % (AUTO) 10.3 % (20.5-51.1); MEAN CORPUSCULAR HEMOGLOBIN 29 pg (27-31); MEAN CORPUSCULAR HGB CONC 32 g/dL (33-37); MONOCYTES # (AUTO) 0.3 K/uL (0.8-1.0); MONOCYTES % (AUTO) 3.7 % (1.7-9.3); NEUTROPHILS # (AUTO) 6.7 K/uL (1.8-7.7); NEUTROPHILS % (AUTO) 80.3 % (42.2-75.2); PLATELET COUNT (AUTO) 184 K/uL (140-450); RED BLOOD CELL COUNT(AUTO) 3.48 MIL/uL (4.20-5.40); WHITE BLOOD COUNT (AUTO) 8.4 K/uL (4.8-10.8)
[2020-02-05 08:00] VITALS: BP 90/57
[2020-02-05] MEDS: CARVEDILOL 3.125 MG TAB PO SCH ×2 (08:00→17:00)
[2020-02-05 08:12] LABS: ALBUMIN 2.5 g/dL (3.4-5.0); ANION GAP 12.6 (8-16); ASPARTATE AMINOTRANSFERASE 24 U/L (15-37); CARBON DIOXIDE 29.5 mmol/L (21-32); CHLORIDE 113 mmol/L (98-107); CREATININE 1.6 mg/dL (0.6-1.3); GLUCOSE 146 mg/dL (74-106); LACTATE DEHYDROGENASE 153 U/L (81-234); MAGNESIUM 2.1 mg/dL (1.8-2.4); POTASSIUM 3.1 mmol/L (3.5-5.1); SODIUM SERUM 152 mmol/L (136-145); TOTAL BILIRUBIN 0.4 mg/dL (0.0-1.0); UREA NITROGEN, BLOOD 47 mg/dL (7-18)
[2020-02-05] MEDS: LOSARTAN 25 MG TAB PO SCH (09:00)
[2020-02-05] MEDS: FUROSEMIDE 20 MG/2 ML VIAL IVP SCH ×3 (09:00→20:50)
[2020-02-05] MEDS: DABIGATRAN ETEXILATE MESYLAT 75 MG CAP PO SCH ×2 (09:25→20:08)
[2020-02-05] MEDS: ZINC SULF 220 MG CAP PO SCH (09:26)
[2020-02-05] MEDS: SERTRALINE 50 MG TAB PO SCH (09:26)
[2020-02-05] MEDS: DONEPEZIL 10 MG TAB PO SCH (09:26)
[2020-02-05] MEDS: ASCORBIC ACID 500 MG TAB PO SCH (09:26)
[2020-02-05] MEDS: LACTOBACILLUS RHAMNOSUS GG 1 EACH CAP PO SCH (09:27)
[2020-02-05] MEDS: FERROUS SULFATE 325 MG TABEC PO SCH ×2 (09:27→20:05)
[2020-02-05] MEDS: levETIRAcetam 500 MG TAB PO SCH ×2 (09:27→20:05)
[2020-02-05] MEDS: POTASSIUM CHLORIDE 10 MEQ TABER PO SCH (09:27)
[2020-02-05] MEDS: MULTIVITAMIN 1 TAB PO SCH (09:28)
[2020-02-05 12:00] VITALS: BP 113/75
[2020-02-05] MEDS: INSULIN LISPRO SLIDING SCALE 100 UNITS/ML VIAL SUBQ PRN ×3 (12:03→20:46)
[2020-02-05] MEDS ORDERED: POTASSIUM CHLORIDE 20% 40 MEQ/15 ML UDC PO SCH (13:00)
[2020-02-05] MEDS: THERAHONEY GEL 42.5 GM TP SCH (13:00)
[2020-02-05] MEDS: HYDRAGUARD CREAM TP SCH (13:54)
[2020-02-05] MEDS: Z-GUARD PASTE TP SCH (13:54)
[2020-02-05] MEDS: DEXT 5% / NACL 0.45% 1,000 ML IV SCH (14:40)
[2020-02-05] MEDS ORDERED: NACL 0.9% IRR 250 ML BOTTLE IR PRN (15:00)
[2020-02-05] MEDS ORDERED: WOUND CARE PREPARATION 178 ML SPR TP PRN (15:00)
[2020-02-05] MEDS ORDERED: THERAHONEY GEL 42.5 GM TP PRN (15:00)
[2020-02-05] MEDS ORDERED: Z-GUARD PASTE TP PRN (15:00)
[2020-02-05] MEDS ORDERED: MILD SOAP AND WATER TP PRN (15:00)
[2020-02-05 16:00] VITALS: BP 100/73
[2020-02-05] MEDS: CHLORHEXADINE GLUC 2% CLOTH TP SCH (16:00)
[2020-02-05] MEDS: MUPIROCIN CA NASAL 2% 1GM TUBE NS SCH (16:00)
[2020-02-05] MEDS ORDERED: NACL 0.45% 1,000 ML IV SCH (17:50)
[2020-02-05 20:00] VITALS: BP 88/55
[2020-02-05] MEDS: ATORVASTATIN 20 MG TAB PO SCH (20:05)
[2020-02-05] MEDS: MELATONIN 3 MG TAB PO SCH (20:06)
[2020-02-06] VITALS (7 sets, daily range): BP systolic 91–112; BP diastolic 56–62
[2020-02-06] MEDS: HYDRAGUARD CREAM TP SCH ×2 (00:18→13:07)
[2020-02-06] MEDS: Z-GUARD PASTE TP SCH ×2 (00:19→13:08)
[2020-02-06] MEDS: PIPERACILLIN/TAZOBACTAM 3.375 GM in DEXTROSE 5% 50 ML IV SCH ×2 (04:35→13:07)
[2020-02-06] MEDS: BLOOD GLUCOSE MONITORING 1 DEV DEV FS SCH ×3 (05:55→16:54)
[2020-02-06 07:50] LABS: HEMOGLOBIN 9.1 g/dL (12.0-16.0); MEAN CORPUSCULAR HEMOGLOBIN 29 pg (27-31)
[2020-02-06 08:02] LABS: ALBUMIN 2.3 g/dL (3.4-5.0); ASPARTATE AMINOTRANSFERASE 22 U/L (15-37); CARBON DIOXIDE 30.2 mmol/L (21-32); CHLORIDE 111 mmol/L (98-107); CREATININE 1.3 mg/dL (0.6-1.3); GLUCOSE 145 mg/dL (74-106); LACTATE DEHYDROGENASE 144 U/L (81-234); PHOSPHORUS 3.1 mg/dL (2.5-4.9); POTASSIUM 4.2 mmol/L (3.5-5.1); SODIUM SERUM 149 mmol/L (136-145); TOTAL BILIRUBIN 0.4 mg/dL (0.0-1.0); UREA NITROGEN, BLOOD 40 mg/dL (7-18)
[2020-02-06 08:03] LABS: BASOPHILS % (AUTO) 0.7 % (0.0-2.0); EOSINOPHILS # (AUTO) 0.4 K/uL (0-0.4); HEMATOCRIT 28.8 % (36-48); LYMPHOCYTES # (AUTO) 0.7 K/uL (2.5-16.5); LYMPHOCYTES % (AUTO) 11.3 % (20.5-51.1); MEAN CORPUSCULAR HGB CONC 32 g/dL (33-37); MEAN CORPUSCULAR VOLUME 91.5 fL (80-94); MONOCYTES # (AUTO) 0.2 K/uL (0.8-1.0); MONOCYTES % (AUTO) 3.9 % (1.7-9.3); NEUTROPHILS # (AUTO) 4.7 K/uL (1.8-7.7); NEUTROPHILS % (AUTO) 78.1 % (42.2-75.2); PLATELET COUNT (AUTO) 167 K/uL (140-450); RED BLOOD CELL COUNT(AUTO) 3.14 MIL/uL (4.20-5.40); RED CELL DISTRIBUTION WIDTH 18.8 % (11.6-13.7)
[2020-02-06] MEDS ORDERED: FOAM DRESSING TP SCH (09:00)
[2020-02-06] MEDS: SERTRALINE 50 MG TAB PO SCH (10:04)
[2020-02-06] MEDS: DONEPEZIL 10 MG TAB PO SCH (10:05)
[2020-02-06] MEDS: LACTOBACILLUS RHAMNOSUS GG 1 EACH CAP PO SCH (10:05)
[2020-02-06] MEDS: ASCORBIC ACID 500 MG TAB PO SCH (10:05)
[2020-02-06] MEDS: POTASSIUM CHLORIDE 10 MEQ TABER PO SCH (10:06)
[2020-02-06] MEDS: LOSARTAN 25 MG TAB PO SCH (10:06)
[2020-02-06] MEDS: ZINC SULF 220 MG CAP PO SCH (10:06)
[2020-02-06] MEDS: FERROUS SULFATE 325 MG TABEC PO SCH (10:07)
[2020-02-06] MEDS: FUROSEMIDE 20 MG/2 ML VIAL IVP SCH (10:07)
[2020-02-06] MEDS: levETIRAcetam 500 MG TAB PO SCH (10:07)
[2020-02-06] MEDS: MULTIVITAMIN 1 TAB PO SCH (10:20)
[2020-02-06] MEDS: CARVEDILOL 3.125 MG TAB PO SCH (10:25)
[2020-02-06] MEDS: DABIGATRAN ETEXILATE MESYLAT 75 MG CAP PO SCH (10:27)
[2020-02-06] MEDS: THERAHONEY GEL 42.5 GM TP SCH (13:08)
[2020-02-06] MEDS ORDERED: NACL 0.9% 500 ML IV SCH (15:00)
[2020-02-06] MEDS ORDERED: ZOS3.375I IV (16:31)
[2020-02-06] MEDS ORDERED: CHLO480L1 PO (16:36)
[2020-02-06] MEDS ORDERED: BACTO TP (16:36)
[2020-02-06] MEDS: MUPIROCIN CA NASAL 2% 1GM TUBE NS SCH (16:42)
[2020-02-06] MEDS: CHLORHEXADINE GLUC 2% CLOTH TP SCH (16:42)
== END 2020-02-06 21:11 | disposition short-term general hospital (02) | DRG 871 ==
LOC: MED 10:40 → EEVIPCON 10:40 → MTU 12:54
PROVIDERS: ADMIT General Practice; ATTEND General Practice
DX: A41.9 Sepsis, unspecified organism (principal); L89.93 Pressure ulcer of unspecified site, stage 3; G93.41 Metabolic encephalopathy; I50.43 Acute on chronic combined systolic (congestive) and diastolic (congestive) heart failure; I21.A1 Myocardial infarction type 2; E43 Unspecified severe protein-calorie malnutrition; E87.0 Hyperosmolality and hypernatremia; I13.0 Hypertensive heart and chronic kidney disease with heart failure and stage 1 through stage 4 chronic kidney disease, or unspecified chronic kidney disease; N17.9 Acute kidney failure, unspecified; N39.0 Urinary tract infection, site not specified; Z68.1 Body mass index [BMI] 19.9 or less, adult; E11.22 Type 2 diabetes mellitus with diabetic chronic kidney disease; F32.9 Major depressive disorder, single episode, unspecified; I48.91 Unspecified atrial fibrillation; K21.9 Gastro-esophageal reflux disease without esophagitis; M19.90 Unspecified osteoarthritis, unspecified site; N18.9 Chronic kidney disease, unspecified; Z86.73 Personal history of transient ischemic attack (TIA), and cerebral infarction without residual deficits; Z88.8 Allergy status to other drugs, medicaments and biological substances; Z03.818 Encounter for observation for suspected exposure to other biological agents ruled out; Z22.322 Carrier or suspected carrier of Methicillin resistant Staphylococcus aureus; D63.8 Anemia in other chronic diseases classified elsewhere; G40.909 Epilepsy, unspecified, not intractable, without status epilepticus; Z79.84 Long term (current) use of oral hypoglycemic drugs; Z79.899 Other long term (current) drug therapy; G30.9 Alzheimer's disease, unspecified; F02.80 Dementia in other diseases classified elsewhere, unspecified severity, without behavioral disturbance, psychotic disturbance, mood disturbance, and anxiety; Z66 Do not resuscitate
CPT/HCPCS: 36415; 70450; 71045; 80053; 81001; 82140; 82150; 82550; 82948; 83036; 83605; 83615; 83690; 83735; 83880; 84100; 84300; 84439; 84443; 84484; 84550; 85025; 85379; 85610; 85651; 85730; 86140; 87040; 87070; 87081; 87086; 87186; 87804; 92610; 93005; 96365; 97110; 97112; 97161-GP; 97530; 99285; J0696; J1815; J1940; J2543; J3490; J7030; J7060; Q0092